=== PATIENT | female | born 1960 ===

== ENCOUNTER 2017-06-20 15:30 | Inpatient (IN) ==
[2017-06-20] MEDS ORDERED: PNEUMOCOCCAL VACCINE (23 VALENT) 0.5 ML VIAL IM ONE (16:57)
[2017-06-20] MEDS ORDERED: DOCUSATE SODIUM 100 MG CAPSULE PO PRN (17:13)
[2017-06-20] MEDS ORDERED: ONDANSETRON 4 MG/2 ML VIAL IV PRN (17:13)
[2017-06-20] MEDS ORDERED: ACETAMINOPHEN 325 MG TABLET PO PRN (17:13)
[2017-06-20] MEDS ORDERED: GLUCAGON 1 MG VIAL IM PRN (17:43)
[2017-06-20] MEDS ORDERED: DEXTROSE 50% 25 GM/50 ML SYRINGE IV PRN (17:43)
--- NOTE | 2017-06-20 18:03 | EKG Report ---
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
--- NOTE | 2017-06-20 18:07 | Hospitalist History & Physical ---
Assessment and Plan (1) Bradycardia Status: Acute Assessment and plan: Admit to telemetry. Cardiac monitoring. Avoid heart rate lowering agents. Consult cardiology. Current Visit: Yes (2) Pneumonia Status: Acute Assessment and plan: O2 monitoring. Start on IV antibiotics. Obtain blood cultures before start. CXR from outside facility pending Current Visit: Yes (3) Hypotension Status: Acute Assessment and plan: Pt reports history of low bp. Stable now. Monitor. Current Visit: Yes (4) Diabetes Status: Acute Assessment and plan: Accuchecks achs. SSI. Hbg A1c in am. Current Visit: Yes (5) CHF (congestive heart failure) Status: Acute Assessment and plan: Stat BNP. Consult cardiology. Current Visit: Yes History of Present Illness Chief complaint: bradycardia History of present illness: Ms. Juarez is a 56 year old female with a history of hypotension, CHF, diabetes , Harrison's palsy, and hyperlipidemia that was transferred to our facility as a direct admit from [facility] for further evaluation of bradycardia and pneumonia. Patient was seen and examined and telemetry [place] room 291. Patient states that yesterday and home she fell several times. She denies hitting her head but reports hurting her right foot. She reported to her PCP for eval today and was sent to the [facility] as a result. At [facility], she was examined and her foot wasn't broken. Pt was noted however to have a low O2 sats in the 80 %. Pt. was also noted to be bradycardiac and a pneumonia was revealed on CXR. She was transferred to our facility for a higher level of care. Pt. denies shortness of breath presently. She also denies chest pain or abdominal pain, vomiting and fever but confirms chills, night sweats, and a cough. Pt. also reports snoring at night abd waking up fatigued. Pt. reports seeing multiple doctors for various health issues but she is unclear on what the issues are. Pt. will be further examined and evaluated. Cardiology will be consulted to assist in the care of the patient as well. Home Medications Medication Instructions Recorded Confirmed Type No Known Home Medications [No 06/20/17 06/20/17 History Known Home Medications] Allergies Allergy/AdvReac Type Severity Reaction Status Date / Time No Known Allergies Allergy Verified 06/20/17 16:57 Medical,Surgical,& Family Hx - Medical History Cardio: History of: CHF Endocrine: History of: Diabetes Mellitus (NIDDM) Respiratory: History of: Pneumonia - Surgical History Abdominal Surgeries: Surgical HX of: Cholecystectomy - Family History Family History: Reports;: Family Stroke - Social History Smoking Status: Never smoker Frequency of Alcohol Use: None Type of Drug Use: None Marital Status: Single Lives With:: Alone Functional capacity: independent ambulation - Constitutional Constitutional: Present: chills, night sweats. Absent: fever(s) - EENT Eyes: Absent: blurry vision Ears: Absent: decreased hearing Nose, mouth and throat: Absent: headache(s) - Cardiovascular Cardiovascular: Present: dyspnea on exertion, edema. Absent: chest pain with activity - Respiratory Respiratory: Present: cough, snoring - Gastrointestinal Gastrointestinal: Present: nausea. Absent: abdominal pain, vomiting - Genitourinary Genitourinary: Absent: dysuria - Neurological Neurological: Present: frequent falls, memory loss - Psychiatric Psychiatric: Absent: anxiety, depression - Hematologic/Lymphatic Hematologic/Lymphatic: Present: easy bruising Exam - Constitutional Vitals: Period Temp Pulse Resp BP Sys/Rosario Pulse Ox Last 24 Hr 98.1 F 50 16 112/57 94 General appearance: no acute distress, over weight - Head Head exam: Present: normal inspection, normocephalic - Eye Eye exam: Present: EOMI. Absent: scleral icterus Pupils: Present: BRIGITTE - ENT ENT exam: Present: normal exam - Neck Neck exam: Present: normal inspection - Respiratory Respiratory exam: Present: clear to auscultation bilaterally. Absent: wheezes - Cardiovascular Cardiovascular exam: Present: bradycardia - GI/Abdominal GI/Abdominal exam: Present: normal bowel sounds, soft. Absent: tenderness - Extremities Exam Extremities exam: Present: normal capillary refill, full ROM, edema, other (pt' s right foot swollen greater than left) - Back Exam Back exam: Present: normal inspection - Neurological Exam Neurological exam: Present: alert, oriented X3 - Psychiatric Psychiatric exam: Present: normal affect, normal mood - Skin Skin exam: Present: normal color, warm, dry, other (right foot bruised) Results - Labs Labs: Labs reviewed from the outside facility Troponin I < 0.05 CPK 697 CK MB 4.8 PBNP 30.7 WBC 4.6 RBC 3.3 HGB 10.8 HCT 33.8 PLT 86 Pt 12 INR 1.16 BUN 8 Creatinine 1.1 Sodium 144 Potassium 4.2 CO2 36.7 SGOT 49 SGPT 38
[2017-06-20] MEDS ORDERED: ALBUTEROL/IPRATROPIUM 3 ML NEB RESP TX PRN (19:04)
[2017-06-20] MEDS: INSULIN LISPRO 100 UNIT/ML SUBCUT SCH (20:06)
[2017-06-21 05:03] LABS: Basophils % 0.3 % (0.0-0.8); Eosinophils # 0.1 10*3/uL (0.0-0.87); Eosinophils % 2.1 % (0.00-10.9); Hematocrit 32.3 VOL% (35.7-47.0); Immature Granulocytes % 3.7 %; Immature Granulocytes Absolute 0.14 #; Lymphocytes # 1.2 10*3/uL (1.4-4.0); Lymphocytes % 32.4 % (21.3-54.2); Mean Corpuscular Hemoglobin 32 PG (27-34); Mean Corpuscular Volume 104.2 FL (87-102); Mean Platelet Volume 11.8 FL (9.6-12.0); Monocytes # 0.2 10*3/uL (0.11-0.8); Monocytes % 5.6 % (1.7-12.7); Neutrophils # 2.1 10*3/uL (1.4-7.4); Neutrophils % 55.9 % (38.7-73.9); Red Cell Distribution Width 16.1 % (9.3-17.3); White Blood Count 3.8 T/CUMM (4-12)
[2017-06-21 05:09] LABS: Platelet Count 70 T/CUMM (130-400)
[2017-06-21 05:50] LABS: Blood Urea Nitrogen 9 MG/DL (7-18); Calcium 8.1 MG/DL (8.5-10.1); Cholesterol 173 MG/DL (50-200); Free T4 (Free Thyroxine) < 0.20 NG/DL (0.76-1.46); Glucose 100 MG/DL (74-106); HDL Cholesterol 52 MG/DL (40-60); Potassium 3.7 MMOL/L (3.5-5.1); Risk Ratio 3.33; Sodium 143 MMOL/L (136-145); Triglycerides 130 MG/DL (2-150)
[2017-06-21 05:52] LABS: Band Neutrophils 4 % (0-10); Eosinophils 3 % (0-10); Lymphocytes 30 % (20-55); Platelet Estimate Decreased; Segmented Neutrophils 57 % (50-85); Total Cells Counted 100
[2017-06-21 05:53] LABS: Giant Platelets Few; Hypochromasia 1+; Ovalocytes Slight
--- NOTE | 2017-06-21 08:45 | XRay Report ---
XR chest 2V Indication: Shortness of breath. Chest 2 views: Comparison yesterday. Moderate to severe cardiomegaly, normal mediastinal contour, bilateral perihilar and left greater than right bibasilar atelectasis and/or infiltrates with bilateral infrahilar air bronchograms again noted. Pulmonary apices remain relatively clear. Obesity again noted as well. Impression: Little significant change from yesterday. Continued bilateral perihilar and bibasilar atelectasis and/or pneumonia. Persistent cardiomegaly. PROCEDURE INTERPRETED AT [facility] DEPARTMENT OF RADIOLOGY Final Report Signed by: Garfield Evans M.D.
[2017-06-21] MEDS: PANTOPRAZOLE 40 MG TABLET PO SCH (09:32)
[2017-06-21] MEDS: INSULIN LISPRO 100 UNIT/ML SUBCUT SCH ×4 (09:35→21:15)
--- NOTE | 2017-06-21 10:07 | Cardiology Consult Note ---
Assessment and Plan - Time spent with patient Time spent with patient: Greater than 30 minutes (1) Bradycardia Status: Acute Assessment and plan: SEE PLAN OF CARE LISTED BELOW. Current Visit: Yes (2) Hypothyroidism Status: Acute Assessment and plan: SEE PLAN OF CARE LISTED BELOW. Current Visit: Yes (3) Cardiomegaly Status: Acute Assessment and plan: SEE PLAN OF CARE LISTED BELOW. Current Visit: Yes (4) Hyperlipidemia Status: Chronic Assessment and plan: SEE PLAN OF CARE LISTED BELOW. Current Visit: Yes (5) Obesity Status: Chronic Assessment and plan: SEE PLAN OF CARE LISTED BELOW. Current Visit: Yes Qualifiers: Body mass index: BMI 45.0-49.9 (6) Orthopnea Status: Chronic Assessment and plan: SEE PLAN OF CARE LISTED BELOW. Current Visit: Yes (7) Bilateral lower extremity edema Status: Acute Assessment and plan: SEE PLAN OF CARE LISTED BELOW. Current Visit: Yes (8) Pancytopenia Status: Acute Assessment and plan: SEE PLAN OF CARE LISTED BELOW. Current Visit: Yes (9) Abnormal EKG Status: Acute Assessment and plan: SEE PLAN OF CARE LISTED BELOW. Current Visit: Yes (10) Snoring Status: Chronic Assessment and plan: SEE PLAN OF CARE LISTED BELOW. Current Visit: Yes (11) Daytime sleepiness Status: Chronic Assessment and plan: SEE PLAN OF CARE LISTED BELOW. Current Visit: Yes (12) CHF (congestive heart failure) Status: Chronic Assessment and plan: SEE PLAN OF CARE LISTED BELOW. Current Visit: Yes Qualifiers: Congestive heart failure type: unspecified congestive heart failure type Congestive heart failure chronicity: chronic Qualified Code(s): I50.9 - Heart failure, unspecified (13) Diabetes Status: Chronic Assessment and plan: SEE PLAN OF CARE LISTED BELOW. Current Visit: Yes (14) Pneumonia Status: Acute Assessment and plan: SEE PLAN OF CARE LISTED BELOW. Current Visit: Yes History of Present Illness - Data of Consult Patient: new to practice Consult date: 06/21/17 Requesting Physician: Garfield Wood - Consult Narrative Reason for consult: bradycardia, history of chf History of present illness: Braiding Operator: New to cardiology, Dr. Herndon Ms. Juarez is a 56 year old female patient without known history of coronary artery disease, not routinely followed by cardiology. Patient has cardiac risk factors significant for diabetes, hyperlipidemia, obesity, family history of heart disease (brother and mother), former smoker and sedentary lifestyle. Patient has past medical history of hypertension, congestive heart failure and Harrison's palsy. Patient reports that she does not take any medications at home. She tells me that her doctor took her off of all of her medication several years ago. She is a poor historian and does not know much about her health conditions. She reports that she has never been seen by patrol man. When asked to manages her heart failure she reports that she gave up on doctors a long time ago. Therefore, she has not followed up routinely with her PCP. Never undergone cardiac workup. Denies previous LHC/stress testing. Patient reports that she recently hurt her right foot status post fall. Subsequently, she was seen at [facility] for evaluation. Right foot was examined in her foot is not broken. She did not hit her head. During her appointment, she was mildly bradycardic with oxygen saturations in the 80s. Chest x-ray was obtained and pneumonia was diagnosed. Subsequently, she was transferred to our facility as a direct admit. Chest x-ray was obtained at our facility which reveals mild cardiomegaly with pneumonia. She has been mildly bradycardic with heart rates in the 50s. Blood pressure stable. She does confirm shortness of breath and dyspnea on exertion over the past 4 days. She denies fever and cough. She does confirm chills and night sweats. She denies experiencing chest pain, heaviness and tightness. Denies abdominal pain, nausea , vomiting, diaphoresis and palpitations. She does confirm chronic orthopnea. She is unable to lie flat at night due to severe shortness of breath. Confirms bilateral lower extremity edema and tenderness. Patient has been admitted under hospital medicine's service. She is being housed in the telemetry unit. Cardiology has been consulted for mild bradycardia and history of congestive heart failure. Of note, patient also has symptoms concerning for obstructive sleep apnea. She confirms snoring and daytime sleepiness. She is also obese with BMI 47. Will most likely benefit from sleep evaluation. Patient was seen and examined on the telemetry unit. She is in no acute distress, requiring oxygen at 2 L via nasal cannula. Most recent oxygen saturation noted to be 96%. Heart rate currently in the 50s. I suspect that this is related to her severe hypothyroidism. This is a new diagnosis. TSH 86 with free T4 less than 0.2. Recommend initiation of Synthroid. EKG revealed sinus bradycardia with prolonged MD interval. Heart rate 47. T-wave abnormality. Will cycle cardiac biomarkers to rule out cardiac ischemia. Echocardiogram. Continue to monitor EKGs. Pneumonia is being treated with Levaquin. No leukocytosis. Afebrile. Patient assented to be pancytopenic. Will order anemia profile. Will defer further management/workup of this to attending. Chest x-ray did reveal cardiomegaly with pneumonia. BNP 6. I will order echocardiogram as she has no baseline echocardiogram available in EMR. Lipid panel reviewed. LDL greater than 100 with triglycerides 130. Will initiate statin. She does have bilateral lower extremity edema and is severely tender. I will order Doppler of bilateral lower extremities. I will further discuss with Dr. herndon and await his additional recommendations. ASSESSMENT/PLAN 1. BRADYCARDIA - Suspect that this is related to patient's severe hypothyroidism. Recommend initiation of Synthroid. Will defer management of this to attending. 2. PNEUMONIA - Continue Levaquin. Management per attending. 3. HYPOTHYROIDISM, NEW DIAGNOSIS - Severe hyperthyroidism noted per thyroid studies. Recommend initiation of Synthroid. Suspect this is causing her bradycardia. 4. CARDIOMEGALLY - Cardiomegaly noted per chest x-ray. Will order echocardiogram. 5. HISTORY OF CHF - Per patient report, she has history of congestive heart failure. She appears to be compensated at this time. BNP 6. Baseline echocardiogram available in EMR. I will order echocardiogram this hospitalization. Further recommendations to follow after echo has been reviewed. 6. HISTORY OF DIABETES - Hemoglobin A1c 6.5. Per patient report, she was taken off of her diabetic medication several years ago. Continue sliding scale insulin, Accu-Cheks before meals and at bedtime. Management per attending. 7. HYPERLIPIDEMIA - Lipid panel reviewed. LDL greater than 100. Triglycerides 130. Will initiate statin. 8. OBESITY - Weight loss encouraged. Treatment of her hypothyroidism should assist in weight loss. 9. ORTHOPNEA - Patient confirms chronic orthopnea. Order echocardiogram as there is not a baseline echo noted in EMR. 10. BILATERAL LOWER EXTREMITY EDEMA/TENDERNESS - Venous Dopplers ordered. Echocardiogram. 11. PANCYTOPENIA - Order anemia profile. Will defer further workup of this to attending. 12. SNORING/DAYTIME SLEEPINESS - Patient also has symptoms concerning for obstructive sleep apnea. She confirms snoring and daytime sleepiness. She is also obese with BMI 47. Will most likely benefit from sleep evaluation. 13. ABNORMAL EKG - EKG reveals sinus bradycardia with prolonged MD interval, heart rate 47. Moderate T-wave abnormality. At this point, I will cycle cardiac biomarkers and EKGs in order to rule out cardiac ischemia. Will order echocardiogram. Patient may benefit from further cardiac workup once her pneumonia improves. I will discuss with Dr. herndon await his additional recommendations. CC: Ruthann Menon MD - Home Medications and Allergies Home Medications: Home Medications Medication Instructions Recorded Confirmed Type No Known Home Medications [No 06/20/17 06/20/17 History Known Home Medications] Allergies/Adverse Reactions: Allergies Allergy/AdvReac Type Severity Reaction Status Date / Time No Known Allergies Allergy Verified 06/20/17 16:57 - Constitutional Constitutional: Present: as per HPI, chills, daytime sleepiness, fatigue, night sweats, weakness, weight gain. Absent: fever(s) - Cardiovascular Cardiovascular: Present: as per HPI, dyspnea, dyspnea on exertion, edema, orthopnea. Absent: diaphoresis, radiating jaw, neck or arm pain, lightheadedness, palpitations, PND - Respiratory Respiratory: Present: as per HPI, dyspnea, dyspnea on exertion, snoring. Absent : cough - Gastrointestinal Gastrointestinal: Present: as per HPI. Absent: abdominal pain, coffee ground emesis, heartburn, hematemesis, hematochezia, loose stools, melena, nausea, vomiting - Neurological Neurological: Present: as per HPI. Absent: abnormal speech, behavioral changes , dizziness, focal weakness, syncope Medical,Surgical,& Family Hx - Medical History Cardio: History of: CHF Endocrine: History of: Diabetes Mellitus (NIDDM), Dyslipidemia Respiratory: History of: Pneumonia - Surgical History Abdominal Surgeries: Surgical HX of: Cholecystectomy - Family History Family History: Reports;: Family Heart Disease, Family Stroke - Social History Smoking Status: Former smoker Frequency of Alcohol Use: None Type of Drug Use: None Marital Status: Single Lives With:: Alone Functional capacity: independent ambulation Physical Examination Vital Signs Temp Pulse Resp BP Pulse Ox 98.1 F 50 L 16 112/57 94 L 06/20/17 16:19 06/20/17 16:19 06/20/17 16:19 06/20/17 16:19 06/20/17 16:19 Exam: General: Appears well with no apparent distress. Pleasant and cooperative. Appears comfortable. HEENT: PERRL, normocephalic, atraumatic. Mucous membranes moist. No jaundice noted. Conjunctiva moist and clear, sclerae anicteric Neck: No JVD/HJR. No carotid bruit appreciated Cardiac: Regular rate and rhythm. No murmur rub or gallop. Lungs: Clear to auscultation. Oxygen via nasal cannula Abdomen: Soft, bowel sounds normoactive. Nontender and nondistended. No abdominal bruit or thrill noted. No masses noted. Extremities: No clubbing, cyanosis noted. 1+ bilateral lower extremity edema, tender to palpation. Upper extremity pulses 2+. Lower extremity pulses 2+. Capillary refill less than 3 seconds. Skin: No unusual lesions or rashes. No skin breakdown appreciated. Neuro: Awake, alert and oriented 3. Moves all extremities well without hemiparesis or paralysis. No essential tremor is appreciated. Result/EKG - Labs CBC & BMP: 06/21/17 03:51 06/21/17 03:51 Lab Results: I have reviewed the past 24 hour labs Labs: Laboratory Results - last 24 hr 06/20/17 06/20/17 06/21/17 18:02 19:55 03:51 WBC 3.8 L RBC 3.10 L Hgb 10.0 L Hct 32.3 L MCV 104.2 H MCH 32 MCHC 31.0 L RDW 16.1 Plt Count 70 L MPV 11.8 Neut % (Auto) 55.9 Lymph % (Auto) 32.4 [facility] % (Auto) 5.6 Eos % (Auto) 2.1 Baso % (Auto) 0.3 Neut # (Auto) 2.1 Lymph # (Auto) 1.[address] [facility] # (Auto) 0.2 Eos # (Auto) 0.1 Baso # (Auto) 0.0 Total Counted 100 Immature Gran % 3.7 Nucleated RBC % 0.0 Immature Gran # 0.14 Segmented Neutrophils 57 Band Neutrophils 4 Lymphocytes 30 Monocytes 6 Eosinophils 3 Nucleated RBCs # 0.00 Platelet Estimate Decreased Giant Platelets Few Immature Plt Fraction 0.0 Hypochromasia 1+ Ovalocytes Slight Morphology Comment Sodium Potassium Chloride Carbon Dioxide Anion Gap BUN Creatinine GFR Calculation BUN/Creatinine Ratio Glucose POC Glucose 98 Hemoglobin A1c Calculated Osmolality Calcium B-Natriuretic Peptide 6 Triglycerides Cholesterol LDL Cholesterol VLDL Cholesterol HDL Cholesterol Heart Disease Risk Ratio Free T4 TSH 3rd Generation 06/21/17 06/21/17 06/21/17 03:51 03:51 07:03 WBC RBC Hgb Hct MCV MCH MCHC RDW Plt Count MPV Neut % (Auto) Lymph % (Auto) [facility] % (Auto) Eos % (Auto) Baso % (Auto) Neut # (Auto) Lymph # (Auto) [facility] # (Auto) Eos # (Auto) Baso # (Auto) Total Counted Immature Gran % Nucleated RBC % Immature Gran # Segmented Neutrophils Band Neutrophils Lymphocytes Monocytes Eosinophils Nucleated RBCs # Platelet Estimate Giant Platelets Immature Plt Fraction Hypochromasia Ovalocytes Morphology Comment Sodium 143 Potassium 3.7 Chloride 104 Carbon Dioxide 37 H Anion Gap 5.7 BUN 9 Creatinine 0.80 GFR Calculation 103 BUN/Creatinine Ratio 11.00 Glucose 100 POC Glucose 98 Hemoglobin A1c 6.5 H Calculated Osmolality 283.0 Calcium 8.1 L B-Natriuretic Peptide Triglycerides 130 Cholesterol 173 LDL Cholesterol 113.0 VLDL Cholesterol 26.0 HDL Cholesterol 52 Heart Disease Risk Ratio 3.33 Free T4 < 0.20 L TSH 3rd Generation 86.000 H 06/21/17 07:30 WBC RBC Hgb Hct MCV MCH MCHC RDW Plt Count MPV Neut % (Auto) Lymph % (Auto) [facility] % (Auto) Eos % (Auto) Baso % (Auto) Neut # (Auto) Lymph # (Auto) [facility] # (Auto) Eos # (Auto) Baso # (Auto) Total Counted Immature Gran % Nucleated RBC % Immature Gran # Segmented Neutrophils Band Neutrophils Lymphocytes Monocytes Eosinophils Nucleated RBCs # Platelet Estimate Giant Platelets Immature Plt Fraction Hypochromasia Ovalocytes Morphology Comment Sodium Potassium Chloride Carbon Dioxide Anion Gap BUN Creatinine GFR Calculation BUN/Creatinine Ratio Glucose POC Glucose 105 Hemoglobin A1c Calculated Osmolality Calcium B-Natriuretic Peptide Triglycerides Cholesterol LDL Cholesterol VLDL Cholesterol HDL Cholesterol Heart Disease Risk Ratio Free T4 TSH 3rd Generation
--- NOTE | 2017-06-21 10:52 | EKG Report ---
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
[2017-06-21 11:10] LABS: Basophils % 0.2 % (0.0-0.8); Eosinophils # 0.1 10*3/uL (0.0-0.87); Hematocrit 32.9 VOL% (35.7-47.0); Hemoglobin 10.1 GM/DL (12.0-16.0); Immature Granulocytes % 4.5 %; Immature Granulocytes Absolute 0.18 #; Lymphocytes % 24.6 % (21.3-54.2); Mean Corpuscular HGB Conc 30.7 GM/DL (32-36); Mean Corpuscular Hemoglobin 33 PG (27-34); Mean Corpuscular Volume 107.9 FL (87-102); Mean Platelet Volume 10.8 FL (9.6-12.0); Monocytes # 0.2 10*3/uL (0.11-0.8); Monocytes % 5.7 % (1.7-12.7); Neutrophils # 2.5 10*3/uL (1.4-7.4); Platelet Count 71 T/CUMM (130-400); Red Blood Count 3.05 MC/CUMM (3.8-5.5); Red Cell Distribution Width 16.3 % (9.3-17.3)
--- NOTE | 2017-06-21 11:36 | Ultrasound Report ---
US venous doppler LE BI Indication: Bilateral lower extremity edema/tenderness. Comparison: No relevant comparison.. Technique: Grayscale, spectral, and color Doppler interrogation of the bilateral lower extremity veins was performed. Augmentation and compression was performed. Findings: Grayscale, color Doppler, and pulsed Doppler evaluation of the veins of the bilateral lower extremity demonstrates no evidence of deep venous thrombosis. IMPRESSION: No evidence of deep venous thrombosis in either lower extremity. PROCEDURE INTERPRETED AT [facility] DEPARTMENT OF RADIOLOGY Final Report Signed by: Dr Eloy Jain
[2017-06-21 11:39] LABS: Folate 10.8 NG/ML (5.4-24.0); Vitamin B12 345 PG/ML (211-911)
[2017-06-21 11:43] LABS: CKMB % 1.2 %; Troponin I Only < 0.015 NG/ML (0.00-0.045)
[2017-06-21 12:15] LABS: Sedimentation Rate-Westergren 48 MM/HR (0-30)
[2017-06-21] MEDS ORDERED: LEVOTHYROXINE 25 MCG TABLET PO ONE (14:16)
--- NOTE | 2017-06-21 16:20 | Hospitalist Progress Note ---
Assessment and Plan (1) Bradycardia Status: Acute Assessment and plan: Likely secondary to hypothyroidism. Start Synthroid supplementation. Cardiology consult. Current Visit: Yes (2) Pneumonia Status: Acute Assessment and plan: Continue Levaquin. Current Visit: Yes (3) CHF (congestive heart failure) Status: Chronic Assessment and plan: Follow-up echo. Treat hypothyroidism. Current Visit: Yes Qualifiers: Congestive heart failure type: unspecified congestive heart failure type Congestive heart failure chronicity: chronic Qualified Code(s): I50.9 - Heart failure, unspecified (4) Hypothyroidism Status: Acute Assessment and plan: Start Synthroid Current Visit: Yes Qualifiers: Hypothyroidism type: acquired Qualified Code(s): E03.9 - Hypothyroidism, unspecified (5) Obesity Status: Chronic Current Visit: Yes Qualifiers: Obesity type: due to excess calories Serious obesity comorbidity presence: with serious comorbidity Body mass index: BMI 45.0-49.9 (6) Bilateral lower extremity edema Status: Acute Current Visit: Yes (7) Snoring Status: Chronic Current Visit: Yes (8) Daytime sleepiness Status: Chronic Assessment and plan: Consult Dr. Lee Current Visit: Yes Hospitalist: Subjective Interval history: Patient seen and examined. No acute events overnight. Case discussed with nursing staff. Labs reviewed. Cardiology consult reviewed. Agree with treatment of hypothyroidism and sleep medicine consult for obstructive sleep apnea. The symptoms of hypothyroidism are evident and I agree with starting treatment with Synthroid. Exam - Constitutional Vitals: Period Temp Pulse Resp BP Sys/Rosario Pulse Ox Last 24 Hr 96.8 F-98.2 F 46-96 16-20 100-118/54-59 91-97 Exam: Constitutional System: No distress. No tremulousness. Morbidly obese Head: Normocephalic, atraumatic. Ears, Nose and Throat System: No pain or tenderness. No epistaxis or discharge Eyes System: Pupils equal, round, and reactive. Extraocular muscles intact. Neck: Supple, without adenopathy, No jugular venous distention. Respiratory System: Chest clear to auscultation. Cardiovascular System: Heart with regular rate and rhythm. No murmur. GI System: Abdomen soft, nontender. Normo active bowel sounds present. Musculoskeletal System: limbs with bilateral pitting pedal edema. Full distal pulses. Neurological System: No discernable sensory deficit. No aphasia Psychiatric System: Conversation is rational Results - Labs CBC & BMP: 06/21/17 10:51 06/21/17 03:51 Lab Results: I have reviewed the past 24 hour labs - Diagnostic Findings Procedure: Chest x-ray: report reviewed by me, image reviewed by me
[2017-06-21] MEDS: LEVOFLOXACIN INJ 500 MG in PREMIX 1 EACH IV SCH (17:52)
--- NOTE | 2017-06-21 17:55 | Sleep Medicine Consult ---
Assessment and Plan (1) Unspecified sleep apnea Status: Acute Assessment and plan: This patient most certainly has very severe sleep apnea based on her physical findings, symptoms, and profound sleepiness. She also has evidence of hypothyroidism that could be a contributing factor and I would recommend institution of thyroid replacement therapy with close follow-up of her TSH levels. We will get an HST done on her tonight while on supplemental oxygen and follow-up those results in a.m. Current Visit: Yes (2) Hypothyroidism Status: Acute Assessment and plan: Obviously, this is a contributing factor and hopefully will improve her status some. This patient may be in danger of myxedema coma if she declines or has other deteriorating factors. Current Visit: Yes Qualifiers: Hypothyroidism type: acquired Qualified Code(s): E03.9 - Hypothyroidism, unspecified (3) Diabetes Status: Chronic Assessment and plan: The prevalence rate for obstructive sleep apnea in patients with type 2 diabetes can be as high as 86%. Those patients with moderate to severe obstructive sleep apnea are at a greater risk for diabetic nephropathy and neuropathy. Compliance with CPAP therapy for these patients can lead to improvement in glycemic control and improvement in insulin sensitivity. Current Visit: Yes History of Present Illness Chief complaint: Sleep apnea History of present illness: Ms. Juraez is a 56 year old female admitted with CHF and bradycardia. There was concern for sleep apnea as a contributing factor and sleep medicine was consulted. She has a stop bang score of 7 and an [place] sleepiness score of 24. She does have a long history of loud snoring with abnormal breathing during sleep with witnessed apneas. She is profoundly sleepy all the time. She usually retires around 9 PM but could not give an estimate of usual wakeup time because she sleeps much of the day. She states that she had been set up in the past for sleep evaluation but lost her appointment after her mother . She does awaken frequently to urinate. Home Medications Medication Instructions Recorded Confirmed Type No Known Home Medications [No 06/20/17 06/20/17 History Known Home Medications] Allergies Allergy/AdvReac Type Severity Reaction Status Date / Time No Known Allergies Allergy Verified 06/20/17 16:57 Review of systems: Notable for profound sleepiness and chronic problems with pain in her legs that make it hard for her to ambulate. Exam (Pulmonay) H&P - Constitutional Vitals: Period Temp Pulse Resp BP Sys/Rosario Pulse Ox Last 24 Hr 96.8 F-98.2 F 46-96 18-20 100-118/54-59 90-97 Exam: She is sitting upright on the side of the bed wearing nasal cannula O2. She appears profoundly sleepy but does answer questions appropriately. She will fall asleep during the interview. Pupils equal round reactive to light and accommodation. Extraocular movements intact. Oropharynx with a class IV Mallampati exam. Neck is large at 23.5 inches circumference. No supraclavicular adenopathy is noted. Chest with fair air movement without significant wheeze or rhonchi. Cardiac exam reveals a regular rhythm without murmur or gallop. Abdomen obese nontender without palpable hepatosplenomegaly or mass. Extremities are without significant edema or clubbing. Neurologically , she is somnolent but answers all questions appropriately. Medical,Surgical,& Family Hx - Medical History Cardio: History of: CHF Endocrine: History of: Diabetes Mellitus (NIDDM), Dyslipidemia Respiratory: History of: Pneumonia - Surgical History Abdominal Surgeries: Surgical HX of: Cholecystectomy - Family History Family History: Reports;: Family Heart Disease, Family Stroke - Social History Smoking Status: Former smoker Frequency of Alcohol Use: None Type of Drug Use: None Results - Labs CBC & BMP: 06/21/17 10:51 06/21/17 03:51 Lab Results: I have reviewed the past 24 hour labs Labs: This patient has severe hypothyroidism with an elevated TSH of 86.
--- NOTE | 2017-06-21 18:25 | EKG Report ---
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
[2017-06-21 19:20] LABS: CKMB % 1.4 %; Troponin I Only < 0.015 NG/ML (0.00-0.045)
[2017-06-21] MEDS: ATORVASTATIN 20 MG TABLET PO SCH (21:15)
--- NOTE | 2017-06-21 21:35 | ECHO Report ---
Paige Juarez Exam Date: 06/21/2017 10:00 Referring Physician: Technologist: Ludmila Acosta Age: 56 Ht (in): 62 Wt (lb): 259 Gender: F Exam Location: [facility] Echo Indications: cardiomegaly, pancytopnea, bradycardia, pneumonia, Hx. CHF BP: 101 / 54 HR: 46 Rhythm: bradycardia Technical Quality: Good IMPRESSIONS Mild concentric left ventricular hypertrophy with diastolic dysfunction. Left ventricular ejection fraction is estimated at >55 %. Mild apical LAE. Mildly thickened mitral valve with mild mitral regurgitation. Small pericardial effusion. + Moderate size left pleural effusion. MEASUREMENTS (Male / Female) Normal Values 2D ECHO LV Diastolic Diameter PLAX 5.3 cm 4.2 - 5.9 / 3.9 - 5.3 cm LV Systolic Diameter PLAX 3.5 cm LV Fractional Shortening PLAX 34.5 % IVS Diastolic Thickness 1.3 cm 0.6 - 1.0 / 0.6 - 0.9 cm LVPW Diastolic Thickness 1.1 cm 0.6 - 1.0 / 0.6 - 0.9 cm RV Internal Dim ED PLAX 2.8 cm Aortic Root Diameter 2.5 cm LA Systolic Diameter LX 4.2 cm 3.0 - 4.0 / 2.7 - 3.8 cm FINDINGS Left Ventricle Normal left ventricular cavity size. Mild concentric left ventricular hypertrophy with diastolic dysfunction. Left ventricular ejection fraction is estimated at >55 %. Right Ventricle Normal right ventricular size. Right Atrium Normal right atrial size. Left Atrium Mild apical LAE Mitral Valve Mildly thickened mitral valve with mild mitral regurgitation. Aortic Valve The aortic valve is trileaflet, delicate and has normal motion. Tricuspid Valve Morphologically normal tricuspid valve. Pulmonic Valve Morphologically normal pulmonic valve. Trace pulmonary valve regurgitation. Pericardium Small pericardial effusion. + Moderate size left pleural effusion Aorta Normal size aortic root and proximal ascending aorta. Brandyn Nova MD (Electronically Signed) Final Date: 21 June 2017 21:34
[2017-06-22 03:02] LABS: Basophils % 0.4 % (0.0-0.8); Eosinophils % 0.8 % (0.00-10.9); Hematocrit 34.9 VOL% (35.7-47.0); Hemoglobin 10.6 GM/DL (12.0-16.0); Immature Granulocytes % 5.9 %; Immature Granulocytes Absolute 0.28 #; Lymphocytes # 0.8 10*3/uL (1.4-4.0); Lymphocytes % 16.1 % (21.3-54.2); Mean Corpuscular HGB Conc 30.4 GM/DL (32-36); Mean Corpuscular Hemoglobin 33 PG (27-34); Mean Platelet Volume 11.4 FL (9.6-12.0); Monocytes # 0.2 10*3/uL (0.11-0.8); Monocytes % 4.6 % (1.7-12.7); Neutrophils # 3.5 10*3/uL (1.4-7.4); Neutrophils % 72.2 % (38.7-73.9); Platelet Count 73 T/CUMM (130-400); Red Blood Count 3.23 MC/CUMM (3.8-5.5); White Blood Count 4.8 T/CUMM (4-12)
[2017-06-22 03:18] LABS: Calcium 8.5 MG/DL (8.5-10.1); Magnesium 2.9 MG/DL (1.8-2.4); Osmolality,Calculated 280.3 MOS/KG (273-304)
[2017-06-22 03:20] LABS: CKMB % 1.5 %; Troponin I Only < 0.015 NG/ML (0.00-0.045)
[2017-06-22 04:44] LABS: Band Neutrophils 9 % (0-10); Hypochromasia 2+; Lymphocytes 16 % (20-55); Metamyelocytes 3 %; Myelocytes 2 %; Platelet Estimate Decreased; Segmented Neutrophils 67 % (50-85); Total Cells Counted 100
--- NOTE | 2017-06-22 07:39 | EKG Report ---
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
--- NOTE | 2017-06-22 08:54 | Hospitalist Progress Note ---
Assessment and Plan (1) Bradycardia Status: Acute Assessment and plan: Likely secondary to hypothyroidism. Start Synthroid supplementation. Cardiology consult. 06/22/18: Add IV Synthroid. Transfer to ICU. Current Visit: Yes (2) Pneumonia Status: Acute Assessment and plan: Continue Levaquin. Current Visit: Yes (3) CHF (congestive heart failure) Status: Chronic Assessment and plan: Treat hypothyroidism. Echo shows Mild concentric left ventricular hypertrophy with diastolic dysfunction. Left ventricular ejection fraction is estimated at >55 %. Mild apical LAE. Mildly thickened mitral valve with mild mitral regurgitation. Small pericardial effusion. + Moderate size left pleural effusion. Current Visit: Yes Qualifiers: Congestive heart failure type: diastolic Congestive heart failure chronicity: chronic Qualified Code(s): I50.32 - Chronic diastolic (congestive ) heart failure (4) Hypothyroidism Status: Acute Assessment and plan: Start Synthroid Current Visit: Yes Qualifiers: Hypothyroidism type: acquired Qualified Code(s): E03.9 - Hypothyroidism, unspecified (5) Obesity Status: Chronic Current Visit: Yes Qualifiers: Obesity type: due to excess calories Serious obesity comorbidity presence: with serious comorbidity Body mass index: BMI 45.0-49.9 (6) Bilateral lower extremity edema Status: Acute Current Visit: Yes (7) Snoring Status: Chronic Current Visit: Yes (8) Daytime sleepiness Status: Chronic Assessment and plan: Consult Dr. Lee 06/22/18: Consult reviewed Current Visit: Yes Hospitalist: Subjective Interval history: Ms. Juarez appears more lethargic this morning. More difficult to arouse and not answering questions appropriately. Transferring her to CCU. She is being treated for congestive heart failure, obstructive sleep apnea, severe hypothyroidism. I have added IV Synthroid. Echo shows: Mild concentric left ventricular hypertrophy with diastolic dysfunction. Left ventricular ejection fraction is estimated at >55 %. Mild apical LAE. Mildly thickened mitral valve with mild mitral regurgitation. Small pericardial effusion. + Moderate size left pleural effusion. Exam - Constitutional Vitals: Period Temp Pulse Resp BP Sys/Rosario Pulse Ox Last 24 Hr 96.4 F-97 F 46-56 15-20 96-136/54-74 89-97 Exam: Constitutional System: Moderate distress. No tremulousness. Morbidly obese. Increasingly lethargic Head: Normocephalic, atraumatic. Ears, Nose and Throat System: No pain or tenderness. No epistaxis or discharge Eyes System: Pupils equal, round, and reactive. Extraocular muscles intact. Neck: Supple, without adenopathy, No jugular venous distention. Respiratory System: Chest clear to auscultation. Cardiovascular System: Heart with regular rate and rhythm. No murmur. GI System: Abdomen soft, nontender. Normo active bowel sounds present. Musculoskeletal System: limbs with bilateral pitting pedal edema. Full distal pulses. Neurological System: No discernable sensory deficit. No aphasia. Increasingly lethargic Results - Labs CBC & BMP: 06/22/17 02:27 06/22/17 02:27 Lab Results: I have reviewed the past 24 hour labs
--- NOTE | 2017-06-22 08:55 | Cardiology Progress Note ---
Assessment and Plan (1) Bradycardia Status: Acute Assessment and plan: SEE PLAN OF CARE LISTED BELOW. Current Visit: Yes (2) Hypothyroidism Status: Acute Assessment and plan: SEE PLAN OF CARE LISTED BELOW. Current Visit: Yes Qualifiers: Hypothyroidism type: acquired Qualified Code(s): E03.9 - Hypothyroidism, unspecified (3) Cardiomegaly Status: Acute Assessment and plan: SEE PLAN OF CARE LISTED BELOW. Current Visit: Yes (4) Hyperlipidemia Status: Chronic Assessment and plan: SEE PLAN OF CARE LISTED BELOW. Current Visit: Yes (5) Obesity Status: Chronic Assessment and plan: SEE PLAN OF CARE LISTED BELOW. Current Visit: Yes Qualifiers: Obesity type: due to excess calories Serious obesity comorbidity presence: with serious comorbidity Body mass index: BMI 45.0-49.9 (6) Orthopnea Status: Chronic Assessment and plan: SEE PLAN OF CARE LISTED BELOW. Current Visit: Yes (7) Bilateral lower extremity edema Status: Acute Assessment and plan: SEE PLAN OF CARE LISTED BELOW. Current Visit: Yes (8) Pancytopenia Status: Acute Assessment and plan: SEE PLAN OF CARE LISTED BELOW. Current Visit: Yes (9) Abnormal EKG Status: Acute Assessment and plan: SEE PLAN OF CARE LISTED BELOW. Current Visit: Yes (10) Snoring Status: Chronic Assessment and plan: SEE PLAN OF CARE LISTED BELOW. Current Visit: Yes (11) Daytime sleepiness Status: Chronic Assessment and plan: SEE PLAN OF CARE LISTED BELOW. Current Visit: Yes (12) CHF (congestive heart failure) Status: Chronic Assessment and plan: SEE PLAN OF CARE LISTED BELOW. Current Visit: Yes Qualifiers: Congestive heart failure type: diastolic Congestive heart failure chronicity: chronic Qualified Code(s): I50.32 - Chronic diastolic (congestive ) heart failure (13) Diabetes Status: Chronic Assessment and plan: SEE PLAN OF CARE LISTED BELOW. Current Visit: Yes (14) Pneumonia Status: Acute Assessment and plan: SEE PLAN OF CARE LISTED BELOW. Current Visit: Yes Cardiology - PN: Subj Interval history: Arts Therapist: New to cardiology, Dr. Herndon SUMMARY Ms. Juarez is a 56 year old female patient without known history of coronary artery disease, not routinely followed by cardiology. Patient has cardiac risk factors significant for diabetes, hyperlipidemia, obesity, family history of heart disease (brother and mother), former smoker and sedentary lifestyle. Patient has past medical history of hypertension, congestive heart failure and Harrison's palsy. Patient reports that she does not take any medications at home. She tells me that her doctor took her off of all of her medication several years ago. She is a poor historian and does not know much about her health conditions. She reports that she has never been seen by casting director. When asked to manages her heart failure she reports that she gave up on doctors a long time ago. Therefore, she has not followed up routinely with her PCP. Never undergone cardiac workup. Denies previous LHC/stress testing. Patient was transferred from [facility] for further evaluation of bradycardia and pneumonia. At our facility, she was noted to have severe hypothyroidism. Synthroid treatment was initiated. She is currently being treated for pneumonia with IV antibiotics. Echocardiogram was performed yesterday which revealed normal systolic function, ejection fraction greater than 55%. Diastolic dysfunction was noted. Small pericardial effusion. Moderate sized left pleural effusion. JUNE 22, 2017 UPDATE Patient was seen and examined on the telemetry unit. She is more lethargic today. She is being transferred down to the CCU this morning in order to be watched more closely as she will be receiving IV levothyroxine. She continues to be mildly bradycardic with heart rates in the 50s. Suspect that this is related to her severe hypothyroidism, receiving levothyroxine. Blood pressure is borderline hypotensive at times. We will hold off on adding JELENA inhibitor/ ARB until her blood pressures are more stable. BNP is 6. No overt heart failure noted. Can consider adding p.o. diuretics. She is without compressive chest pain, heaviness and tightness. Cardiac biomarkers negative 3. At this point, we will continue current management. Hopeful that bradycardia will improve with treatment of her hypothyroidism. I will further discuss with Dr. Nova and await his additional recommendations. ASSESSMENT/PLAN 1. BRADYCARDIA - Suspect that this is related to patient's severe hypothyroidism. Hopeful that this will improve with IV levothyroxine. Can consider pacemaker in her future if this is not improved with treatment of her thyroid dysfunction. 2. PNEUMONIA - Continue Levaquin. Management per attending. 3. HYPOTHYROIDISM, NEW DIAGNOSIS - Severe hyperthyroidism noted per thyroid studies. Continue Synthroid. 4. HISTORY OF CHF, DIASTOLIC DYSFUNCTION - Per patient report, she has history of congestive heart failure. She appears to be compensated at this time. BNP 6. Echocardiogram yesterday revealed normal systolic function with ejection fraction greater than 55%. She does have diastolic dysfunction. Unable to initiate beta-blockade at this time due to bradycardia. Will add JELENA inhibitor/ARB when blood pressures are more stable. Can consider adding p.o. diuretics. 5. HISTORY OF DIABETES - Hemoglobin A1c 6.5. Per patient report, she was taken off of her diabetic medication several years ago. Continue sliding scale insulin, Accu-Cheks before meals and at bedtime. Management per attending. 6. HYPERLIPIDEMIA - Lipid panel reviewed. LDL greater than 100. Triglycerides 130. Continue lipid-lowering agent. 7. OBESITY - Weight loss encouraged. Treatment of her hypothyroidism should assist in weight loss. 8. ORTHOPNEA - echocardiogram reveals diastolic dysfunction. No overt heart failure noted. Will initiate beta-blockade/JELENA inhibitor when blood pressure and heart rate will allow. Can consider addition of p.o. diuretics at discharge. 9. BILATERAL LOWER EXTREMITY EDEMA/TENDERNESS - This appears to be chronic. Venous Dopplers did not reveal evidence of DVT. 10. PANCYTOPENIA - Will defer further workup of this to attending. 11. SNORING/DAYTIME SLEEPINESS - Workup underway per Dr. Lee. Exam (Progress Note) - Constitutional Vitals: Period Temp Pulse Resp BP Sys/Rosario Pulse Ox Last 24 Hr 96.4 F-97 F 46-56 15-20 96-136/54-74 89-97 Exam: General: Lethargic. Moderate distress. Obese. HEENT: PERRL, normocephalic, atraumatic. Mucous membranes moist. No jaundice noted. Conjunctiva moist and clear, sclerae anicteric Neck: No JVD/HJR. No carotid bruit appreciated Cardiac: Regular rate and rhythm. No murmur rub or gallop. Lungs: Clear to auscultation. Oxygen via nasal cannula Abdomen: Soft, bowel sounds normoactive. Nontender and nondistended. No abdominal bruit or thrill noted. No masses noted. Extremities: No clubbing, cyanosis noted. 1+ bilateral lower extremity edema, tender to palpation. Upper extremity pulses 2+. Lower extremity pulses 2+. Capillary refill less than 3 seconds. Skin: No unusual lesions or rashes. No skin breakdown appreciated. Neuro: Lethargic. Able to move all extremities to command. Result/EKG - Labs CBC & BMP: 06/22/17 02:27 06/22/17 02:27 Lab Results: I have reviewed the past 24 hour labs Labs: Laboratory Results - last 24 hr 06/21/17 06/21/17 06/21/17 10:51 10:51 10:51 WBC 4.0 RBC 3.05 L Hgb 10.1 L Hct 32.9 L MCV 107.9 H MCH 33 MCHC 30.7 L RDW 16.3 Plt Count 71 L MPV 10.8 Neut % (Auto) 63.0 Lymph % (Auto) 24.6 [place] % (Auto) 5.7 Eos % (Auto) 2.0 Baso % (Auto) 0.2 Neut # (Auto) 2.5 Lymph # (Auto) 1.0 L [place] # (Auto) 0.2 Eos # (Auto) 0.1 Baso # (Auto) 0.0 Total Counted Immature Gran % 4.5 Nucleated RBC % 0.0 Immature Gran # 0.18 Segmented Neutrophils Band Neutrophils Lymphocytes Monocytes Metamyelocytes Myelocytes Nucleated RBCs # 0.00 Platelet Estimate Immature Plt Fraction 6.2 Hypochromasia ESR Westergren 48 H Absolute Retic 0.1 Percent Retic 2.8 H Retic Hgb Equivalent 30.6 Sodium Potassium Chloride Carbon Dioxide Anion Gap BUN Creatinine GFR Calculation BUN/Creatinine Ratio Glucose POC Glucose Calculated Osmolality Calcium Magnesium Ferritin 86.0 Total Creatine Kinase 481 H CK-MB (CK-2) 5.8 H CK and CKMB Interp 1.2 Troponin I < 0.015 Vitamin B12 Folate ALCON (IgG-AHG) ALCON, Polyspecific 06/21/17 06/21/17 06/21/17 10:51 10:52 11:30 WBC RBC Hgb Hct MCV MCH MCHC RDW Plt Count MPV Neut % (Auto) Lymph % (Auto) [place] % (Auto) Eos % (Auto) Baso % (Auto) Neut # (Auto) Lymph # (Auto) [place] # (Auto) Eos # (Auto) Baso # (Auto) Total Counted Immature Gran % Nucleated RBC % Immature Gran # Segmented Neutrophils Band Neutrophils Lymphocytes Monocytes Metamyelocytes Myelocytes Nucleated RBCs # Platelet Estimate Immature Plt Fraction Hypochromasia ESR [place] Absolute Retic Percent Retic Retic Hgb Equivalent Sodium Potassium Chloride Carbon Dioxide Anion Gap BUN Creatinine GFR Calculation BUN/Creatinine Ratio Glucose POC Glucose 98 Calculated Osmolality Calcium Magnesium Ferritin Total Creatine Kinase CK-MB (CK-2) CK and CKMB Interp Troponin I Vitamin B12 345 Folate 10.8 ALCON (IgG-AHG) Negative ALCON, Polyspecific Negative 06/21/17 06/21/17 06/21/17 16:22 18:22 20:21 WBC RBC Hgb Hct MCV MCH MCHC RDW Plt Count MPV Neut % (Auto) Lymph % (Auto) [place] % (Auto) Eos % (Auto) Baso % (Auto) Neut # (Auto) Lymph # (Auto) [place] # (Auto) Eos # (Auto) Baso # (Auto) Total Counted Immature Gran % Nucleated RBC % Immature Gran # Segmented Neutrophils Band Neutrophils Lymphocytes Monocytes Metamyelocytes Myelocytes Nucleated RBCs # Platelet Estimate Immature Plt Fraction Hypochromasia ESR [place] Absolute Retic Percent Retic Retic Hgb Equivalent Sodium Potassium Chloride Carbon Dioxide Anion Gap BUN Creatinine GFR Calculation BUN/Creatinine Ratio Glucose POC Glucose 105 110 H Calculated Osmolality Calcium Magnesium Ferritin Total Creatine Kinase 548 H CK-MB (CK-2) 7.5 H CK and CKMB Interp 1.4 Troponin I < 0.015 Vitamin B12 Folate ALCON (IgG-AHG) ALCON, Polyspecific 06/22/17 06/22/17 06/22/17 02:27 02:27 02:27 WBC 4.8 RBC 3.23 L Hgb 10.6 L Hct 34.9 L MCV 108.0 H MCH 33 MCHC 30.4 L RDW 16.0 Plt Count 73 L MPV 11.4 Neut % (Auto) 72.2 Lymph % (Auto) 16.1 L [place] % (Auto) 4.6 Eos % (Auto) 0.8 Baso % (Auto) 0.4 Neut # (Auto) 3.5 Lymph # (Auto) 0.8 L [place] # (Auto) 0.2 Eos # (Auto) 0.0 Baso # (Auto) 0.0 Total Counted 100 Immature Gran % 5.9 Nucleated RBC % 0.0 Immature Gran # 0.28 Segmented Neutrophils 67 Band Neutrophils 9 Lymphocytes 16 L Monocytes 3 Metamyelocytes 3 Myelocytes 2 Nucleated RBCs # 0.00 Platelet Estimate Decreased Immature Plt Fraction 6.6 Hypochromasia 2+ ESR [place] Absolute Retic Percent Retic Retic Hgb Equivalent Sodium 141 Potassium 4.0 Chloride 103 Carbon Dioxide 38 H Anion Gap 4.0 L BUN 10 Creatinine 1.00 GFR Calculation 79 BUN/Creatinine Ratio 10.00 Glucose 119 H POC Glucose Calculated Osmolality 280.3 Calcium 8.5 Magnesium 2.9 H Ferritin Total Creatine Kinase 507 H CK-MB (CK-2) 7.7 H CK and CKMB Interp 1.5 Troponin I < 0.015 Vitamin B12 Folate ALCON (IgG-AHG) ALCON, Polyspecific 06/22/17 08:07 WBC RBC Hgb Hct MCV MCH MCHC RDW Plt Count MPV Neut % (Auto) Lymph % (Auto) [place] % (Auto) Eos % (Auto) Baso % (Auto) Neut # (Auto) Lymph # (Auto) [place] # (Auto) Eos # (Auto) Baso # (Auto) Total Counted Immature Gran % Nucleated RBC % Immature Gran # Segmented Neutrophils Band Neutrophils Lymphocytes Monocytes Metamyelocytes Myelocytes Nucleated RBCs # Platelet Estimate Immature Plt Fraction Hypochromasia ESR [place] Absolute Retic Percent Retic Retic Hgb Equivalent Sodium Potassium Chloride Carbon Dioxide Anion Gap BUN Creatinine GFR Calculation BUN/Creatinine Ratio Glucose POC Glucose 115 H Calculated Osmolality Calcium Magnesium Ferritin Total Creatine Kinase CK-MB (CK-2) CK and CKMB Interp Troponin I Vitamin B12 Folate ALCON (IgG-AHG) ALCON, Polyspecific
[2017-06-22 09:06] LABS: Hemoglobin A1 (Alkaline) 97.5 % (96.5-98.5); Hemoglobin A2 (Alkaline) 2.5 % (1.5-3.5)
[2017-06-22] MEDS: LEVOTHYROXINE 25 MCG TABLET PO SCH (09:34)
[2017-06-22] MEDS: INSULIN LISPRO 100 UNIT/ML SUBCUT SCH ×4 (09:35→21:11)
[2017-06-22] MEDS: PANTOPRAZOLE 40 MG TABLET PO SCH (09:49)
[2017-06-22 09:51] LABS: ABG Base Excess 4.6 MMOL/L (-2.5-2.5); ABG HCO3 28.5 MMOL/L (20-26); ABG Oxygen Saturation 92.6 % (95-100); ABG PO2 75.6 MM HG (80-95); ABG TCO2 37.3 MMOL/L (23-27)
[2017-06-22 09:54] LABS: ABG PH 7.102 (7.35-7.45)
[2017-06-22 11:45] LABS: ABG Base Excess 5.4 MMOL/L (-2.5-2.5); ABG HCO3 29.2 MMOL/L (20-26); ABG Oxygen Saturation 90.3 % (95-100); ABG PO2 68.1 MM HG (80-95); ABG TCO2 38.4 MMOL/L (23-27)
--- NOTE | 2017-06-22 11:46 | Pulmonology Consult Note ---
Assessment and Plan (1) Acute respiratory failure Status: Acute Assessment and plan: She has a PCO2 of 131 and a pH of 7.09 on BiPAP with 100% oxygen. Do not have the PO2 out yet. Clearly she has not responded to BiPAP. She needs intubation and mechanical ventilation. The respiratory failure is probably due to severe hypothyroidism with early myxedema coma. Also likely has obstructive sleep apnea and or obesity hypoventilation syndrome Current Visit: Yes (2) Hypothyroidism Status: Acute Assessment and plan: TSH 83 with a very low free T4. Clearly she is profoundly hypothyroid. Agree with replacing with Synthroid. It will take several days to get her thyroid condition corrected with medications. Current Visit: Yes Qualifiers: Hypothyroidism type: acquired Qualified Code(s): E03.9 - Hypothyroidism, unspecified (3) Unspecified sleep apnea Status: Acute Assessment and plan: Likely has sleep apnea based on her history and physical exam. This is clearly aggravated by her hypothyroidism. BiPAP does not appear to be working at this point. She needs mechanical ventilation and then can wean when her hypothyroid is better controlled Current Visit: Yes (4) Diabetes Status: Chronic Assessment and plan: Glucoses look okay Current Visit: Yes History of Present Illness Chief complaint: Respiratory failure History of present illness: Ms. Juarez is a 56 year old female who is apparently noncompliant with her medications and came in with decreased level of consciousness and syncopal episodes. She was found to have an elevated PCO2 over 100 and a pH of 7.1 and presently is on facemask BiPAP with 100% oxygen. We do not have blood gases on that yet. She was found to be profoundly hypothyroid with a TSH of 86 and a free T4 less than 0.2. We think she was supposed to be on thyroid medicine at home but stopped taking it. She really was not taking any of her medicines. She has a history of diabetes. She is felt to have congestive heart failure but her echo showed left ventricular hypertrophy normal LV ejection fraction, and her BNP is actually low. She may be actually on the dry side. Her chest x- ray shows a right midlung infiltrate she has got a small left pleural effusion or pleural thickening. Looking back in x-rays from 2013 I do not really see any change in it except that her heart size is a little larger now. She has been seen by Dr. Lee from the sleep lab. Please see his note. Home Medications Medication Instructions Recorded Confirmed Type No Known Home Medications [No 06/20/17 06/20/17 History Known Home Medications] Allergies Allergy/AdvReac Type Severity Reaction Status Date / Time No Known Allergies Allergy Verified 06/20/17 16:57 ROS unobtainable: due to mental status Exam (Pulmonay) H&P - Constitutional Vitals: Period Temp Pulse Resp BP Sys/Rosario Pulse Ox Last 24 Hr 96.4 F-97.0 F 46-56 10-20 92-136/45-74 89-97 Exam: Patient wearing facemask BiPAP. She sluggish but responsive. O2 sat 92%. Blood pressure about 90/50. Pulse around 50. Pupils react to light. Neck supple. Chest reveals equal breath sounds. I do not hear any rales or wheezes. Heart rate around 50 no murmurs. Abdomen soft no masses. Extremities no clubbing or cyanosis. Trace of edema at most. Medical,Surgical,& Family Hx - Medical History Cardio: History of: CHF Endocrine: History of: Diabetes Mellitus (NIDDM), Dyslipidemia Respiratory: History of: Pneumonia - Surgical History Abdominal Surgeries: Surgical HX of: Cholecystectomy - Family History Family History: Reports;: Family Heart Disease, Family Stroke - Social History Smoking Status: Former smoker Frequency of Alcohol Use: None Type of Drug Use: None Results - Labs CBC & BMP: 06/22/17 02:27 06/22/17 02:27 Lab Results: I have reviewed the past 24 hour labs - Diagnostic Findings Procedure: Chest x-ray: image reviewed by me (Cardiomegaly right midlung infiltrate left pleural reaction)
[2017-06-22 11:47] LABS: ABG PH 7.096 (7.35-7.45)
[2017-06-22] MEDS ORDERED: MIDAZOLAM 2 MG/2 ML VIAL IV ONE (12:00)
[2017-06-22] MEDS ORDERED: SUCCINYLCHOLINE 200 MG/10 ML VIAL ONE (12:04)
[2017-06-22] MEDS ORDERED: MIDAZOLAM 2 MG/2 ML VIAL ONE (12:04)
[2017-06-22] MEDS ORDERED: PROPOFOL 1,000 MG/100 ML BOTTLE IV ONE (12:10)
[2017-06-22] MEDS ORDERED: SODIUM CHLORIDE 0.9% 250 ML IV ONE (12:15)
[2017-06-22] MEDS ORDERED: PHENYLEPHRINE DRIP 40 MG/250 ML PREMIX IV ONE (12:18)
[2017-06-22] MEDS: PROPOFOL 1,000 MG/100 ML BOTTLE IV SCH (12:28)
[2017-06-22] MEDS: PHENYLEPHRINE DRIP 40 MG/250 ML PREMIX IV SCH (12:29)
[2017-06-22] MEDS ORDERED: PROPOFOL 200 MG/20 ML VIAL IV PRN (12:30)
--- NOTE | 2017-06-22 12:41 | Sleep Medicine Progress Note ---
Assessment and Plan (1) Unspecified sleep apnea Status: Acute Current Visit: Yes (2) Hypothyroidism Status: Acute Current Visit: Yes Qualifiers: Hypothyroidism type: acquired Qualified Code(s): E03.9 - Hypothyroidism, unspecified (3) Diabetes Status: Chronic Current Visit: Yes Sleep Medicine Subjective Interval history: This patient did undergo HST evaluation last night and it was an uninterpretable result. Her condition is deteriorated and she is requiring mechanical ventilation for acute respiratory failure and is being treated for possible myxedema coma. 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 Exam (Progress Note) - Constitutional Vitals: Period Temp Pulse Resp BP Sys/Rosario Pulse Ox Last 24 Hr 96.4 F-97.0 F 49-56 10-20 92-136/45-74 89-92 Results - Labs CBC & BMP: 06/22/17 02:27 06/22/17 02:27
--- NOTE | 2017-06-22 12:48 | XRay Report ---
XR chest 1V portable Indication: Intubated. Chest one view: Comparison yesterday. Endotracheal tube tip terminates at the origin of the right mainstem bronchus and should be withdrawn slightly. Cardiomegaly is unchanged. Worsening obscuration of both lung bases now present. Impression: Endotracheal tube at the ostium of the right mainstem bronchus. Withdraw slightly. Progressive bibasilar atelectasis or infiltrate. PROCEDURE INTERPRETED AT [facility] DEPARTMENT OF RADIOLOGY Final Report Signed by: Garfield Evans M.D.
[2017-06-22 12:49] LABS: Apearance,Urine CLEAR (Clear); Bilirubin,Urine Negative (Negative); Blood, Urine Negative (Negative); Glucose,Urine (UA) Negative (Negative); Ketones,Urine Negative (Negative); Mucus,Urine Occasional /LPF (Occasional); Nitrite,Urine Negative (Negative); Protein,Urine 30 MG/DL; Urine Color Yellow (Yellow); Urine Specific Gravity 1.019 (1.001-1.035); WBC,Urine <1 /HPF (0-6)
--- NOTE | 2017-06-22 13:38 | XRay Report ---
XR chest 1V portable Indication: Intubated. Chest one view: Endotracheal tube has been withdrawn and is now 1 cm cephalad the maria ines. The remainder of the exam is unchanged with continued atelectasis or infiltrate of the lung bases. Impression: Adequately adjusted endotracheal tube position. PROCEDURE INTERPRETED AT [facility] DEPARTMENT OF RADIOLOGY Final Report Signed by: Garfield Evans M.D.
--- NOTE | 2017-06-22 14:11 | EKG Report ---
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 POSSIBLE RIGHT VENTRICULAR HYPERTROPHY MODERATE T-WAVE ABNORMALITY, CONSIDER ANTEROLATERAL ISCHEMIA MODERATE T-WAVE ABNORMALITY, CONSIDER INFERIOR ISCHEMIA Electronically Signed On 06-22-17 17:24:02 CDT by PAM LORA [email or web address]
[2017-06-22] MEDS: HYDROCORTISONE 100 MG VIAL IV SCH (14:35)
[2017-06-22 14:50] LABS: ABG Base Excess 9.4 MMOL/L (-2.5-2.5); ABG HCO3 33.2 MMOL/L (20-26); ABG Oxygen Saturation 97.8 % (95-100); ABG PCO2 42.6 MM HG (35-48); ABG PH 7.505 (7.35-7.45); ABG TCO2 30.2 MMOL/L (23-27)
[2017-06-22] MEDS: MIDAZOLAM 100 MG in SODIUM CHLORIDE 0.9% 80 ML IV SCH (15:04)
[2017-06-22] MEDS: LEVOFLOXACIN INJ 500 MG in PREMIX 1 EACH IV SCH (16:57)
--- NOTE | 2017-06-22 17:45 | Event Note ---
Procedure note Endotracheal intubation Patient seen and examined. Case discussed with nursing staff. Labs reviewed. The patient was transferred to the intensive care unit for worsening lethargy. ABG reveals respiratory acidosis with significantly elevated PCO2 levels. The patient failed a trial of BiPAP and now requires mechanical ventilation and endotracheal intubation for acute respiratory failure with severe respiratory acidosis. The case was discussed with Dr. Sabillon at the bedside. - Intubation Sedative: Versed Mg given sedative: 6 mg Paralytic: None Mg given paralytic: None Laryngoscope: Britney 4 ET Tube Size: 7.5 Tube Secured Depth (cm): 23 Tube Secured Location: lips Tube Placement Confirmation: visualized tube passing through cords, equal breath sounds bilaterally, no breath sounds over epigastrium, confirmation by capnometry, confirmation detector color change Patient tolerated procedure intubation: well, no complications Intubation Complications: None Additional Comments: Chest x-ray was reviewed. The endotracheal tube was pulled back slightly and a repeat chest x-ray confirms adequate positioning.
[2017-06-22 17:46] LABS: ABG Base Excess 10.1 MMOL/L (-2.5-2.5); ABG HCO3 33.9 MMOL/L (20-26); ABG Oxygen Saturation 97.8 % (95-100); ABG PCO2 30.7 MM HG (35-48); ABG TCO2 28.6 MMOL/L (23-27)
[2017-06-22 17:47] LABS: ABG PH 7.622 (7.35-7.45)
[2017-06-22] MEDS: ATORVASTATIN 20 MG TABLET PO SCH (21:51)
[2017-06-22] MEDS: FAMOTIDINE 8 MG/ML 50 ML/BOTTLE PO SCH (21:51)
[2017-06-23] MEDS: HYDROCORTISONE 100 MG VIAL IV SCH ×2 (00:40→13:48)
[2017-06-23 03:26] LABS: ABG Base Excess 5.2 MMOL/L (-2.5-2.5); ABG HCO3 29.1 MMOL/L (20-26); ABG Oxygen Saturation 97.3 % (95-100); ABG PH 7.515 (7.35-7.45); ABG TCO2 25.5 MMOL/L (23-27); Allen Test Positive; Pt O2 Delivery Device Ventilator
--- NOTE | 2017-06-23 06:13 | Pulmonology Progress Note ---
Pulmonary - PN: Subj Interval history: This 56-year-old black female came in with bradycardia and acute respiratory failure. Her PCO2 was in the 100s. We were not able to get it turned around with BiPAP. She is now on the ventilator. ABGs look good now. It appears that she has severe hypothyroidism. We have started her on Synthroid. I added Solu-Cortef as sometimes these people have adrenal insufficiency. She is more responsive this morning. She is on empiric antibiotics. It will likely take a few days for the thyroid replacement to be effective. She also has apparent obstructive sleep apnea, however the sleep study that was done was not interpretable. Please see Dr. Green's note. Exam (Progress Note) - Constitutional Vitals: Period Temp Pulse Resp BP Sys/Rosario Pulse Ox Last 24 Hr 96.5 F-97.3 F 38-60 10-21 92-153/11-117 89-100 Exam: She is somewhat responsive. Pupils are reactive. Orotracheal tube in place. Neck supple no bruits. Chest reveals a few basilar rhonchi. Heart rates around 50 no murmurs. Abdomen soft nontender no masses. Extremities no clubbing cyanosis edema. Results - Labs CBC & BMP: 06/22/17 02:27 06/22/17 02:27 Lab Results: I have reviewed the past 24 hour labs - Diagnostic Findings Procedure: Chest x-ray: image reviewed by me (ET tube was in good position after being adjusted yesterday. Slight interstitial infiltrates bilaterally.) Assessment and Plan (1) Acute respiratory failure Status: Acute Assessment and plan: She has a PCO2 of 131 and a pH of 7.09 on BiPAP with 100% oxygen. Do not have the PO2 out yet. Clearly she has not responded to BiPAP. She needs intubation and mechanical ventilation. The respiratory failure is probably due to severe hypothyroidism with early myxedema coma. Also likely has obstructive sleep apnea and or obesity hypoventilation syndrome 06/23/2017 ABGs look good on the ventilator. We can start trying CPAP trials. This will tell us about the status of her thyroid replacement. If she is not having adequate minute ventilation on CPAP 10 we will need to wait on weaning. Current Visit: Yes (2) Hypothyroidism Status: Acute Assessment and plan: TSH 83 with a very low free T4. Clearly she is profoundly hypothyroid. Agree with replacing with Synthroid. It will take several days to get her thyroid condition corrected with medications. 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 Hopefully replacing thyroid for a few days will get this corrected enough that she can be weaned. Current Visit: Yes Qualifiers: Hypothyroidism type: acquired Qualified Code(s): E03.9 - Hypothyroidism, unspecified (3) Unspecified sleep apnea Status: Acute Assessment and plan: Likely has sleep apnea based on her history and physical exam. This is clearly aggravated by her hypothyroidism. BiPAP does not appear to be working at this point. She needs mechanical ventilation and then can wean when her hypothyroid is better controlled 06/23/2017 she had a home sleep study done but it was not interpretable. Certainly has signs and symptoms of obstructive sleep apnea. Current Visit: Yes (4) Diabetes Status: Chronic Assessment and plan: Glucoses look okay 06/23/2017 glucoses look good. Current Visit: Yes
[2017-06-23] MEDS: LEVOTHYROXINE 100 MCG VIAL IV SCH (06:46)
[2017-06-23 06:57] LABS: Basophils % 0.3 % (0.0-0.8); Eosinophils % 0.2 % (0.00-10.9); Hematocrit 33.7 VOL% (35.7-47.0); Hemoglobin 11.1 GM/DL (12.0-16.0); Immature Granulocytes % 3.2 %; Immature Granulocytes Absolute 0.21 #; Lymphocytes # 1.3 10*3/uL (1.4-4.0); Lymphocytes % 19.7 % (21.3-54.2); Mean Corpuscular HGB Conc 32.9 GM/DL (32-36); Mean Corpuscular Hemoglobin 33 PG (27-34); Mean Corpuscular Volume 100.6 FL (87-102); Mean Platelet Volume 12.4 FL (9.6-12.0); Monocytes # 0.5 10*3/uL (0.11-0.8); Monocytes % 7.8 % (1.7-12.7); NRBC # 0.07 10*3/uL; Neutrophils # 4.5 10*3/uL (1.4-7.4); Neutrophils % 68.8 % (38.7-73.9); Platelet Count 58 T/CUMM (130-400); Red Blood Count 3.35 MC/CUMM (3.8-5.5); Red Cell Distribution Width 16.2 % (9.3-17.3); White Blood Count 6.5 T/CUMM (4-12)
[2017-06-23 07:05] LABS: Calcium 8.5 MG/DL (8.5-10.1); Magnesium 2.5 MG/DL (1.8-2.4); Osmolality,Calculated 281.1 MOS/KG (273-304); Potassium 3.5 MMOL/L (3.5-5.1)
[2017-06-23 07:24] LABS: Platelet Estimate Decreased
[2017-06-23 07:25] LABS: Hypochromasia 1+
[2017-06-23] MEDS: INSULIN LISPRO 100 UNIT/ML SUBCUT SCH ×3 (07:45→16:20)
[2017-06-23] MEDS: LEVOTHYROXINE 25 MCG TABLET PO SCH (07:53)
--- NOTE | 2017-06-23 08:09 | Cardiology Progress Note ---
Assessment and Plan (1) Bradycardia Status: Acute Assessment and plan: SEE PLAN OF CARE LISTED BELOW. Current Visit: Yes (2) Hypothyroidism Status: Acute Assessment and plan: SEE PLAN OF CARE LISTED BELOW. Current Visit: Yes Qualifiers: Hypothyroidism type: acquired Qualified Code(s): E03.9 - Hypothyroidism, unspecified (3) Cardiomegaly Status: Acute Assessment and plan: SEE PLAN OF CARE LISTED BELOW. Current Visit: Yes (4) Hyperlipidemia Status: Chronic Assessment and plan: SEE PLAN OF CARE LISTED BELOW. Current Visit: Yes (5) Obesity Status: Chronic Assessment and plan: SEE PLAN OF CARE LISTED BELOW. Current Visit: Yes Qualifiers: Obesity type: due to excess calories Serious obesity comorbidity presence: with serious comorbidity Body mass index: BMI 45.0-49.9 (6) Orthopnea Status: Chronic Assessment and plan: SEE PLAN OF CARE LISTED BELOW. Current Visit: Yes (7) Bilateral lower extremity edema Status: Acute Assessment and plan: SEE PLAN OF CARE LISTED BELOW. Current Visit: Yes (8) Pancytopenia Status: Acute Assessment and plan: SEE PLAN OF CARE LISTED BELOW. Current Visit: Yes (9) Abnormal EKG Status: Acute Assessment and plan: SEE PLAN OF CARE LISTED BELOW. Current Visit: Yes (10) Snoring Status: Chronic Assessment and plan: SEE PLAN OF CARE LISTED BELOW. Current Visit: Yes (11) Daytime sleepiness Status: Chronic Assessment and plan: SEE PLAN OF CARE LISTED BELOW. Current Visit: Yes (12) CHF (congestive heart failure) Status: Chronic Assessment and plan: SEE PLAN OF CARE LISTED BELOW. Current Visit: Yes Qualifiers: Congestive heart failure type: diastolic Congestive heart failure chronicity: chronic Qualified Code(s): I50.32 - Chronic diastolic (congestive ) heart failure (13) Diabetes Status: Chronic Assessment and plan: SEE PLAN OF CARE LISTED BELOW. Current Visit: Yes (14) Pneumonia Status: Acute Assessment and plan: SEE PLAN OF CARE LISTED BELOW. 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 Herndon SUMMARY Ms. Juarez is a 56 year old female patient without known history of coronary artery disease, not routinely followed by cardiology. Patient has cardiac risk factors significant for diabetes, hyperlipidemia, obesity, family history of heart disease (brother and mother), former smoker and sedentary lifestyle. Patient has past medical history of hypertension, congestive heart failure and Harrison's palsy. Patient reports that she does not take any medications at home. She tells me that her doctor took her off of all of her medication several years ago. She is a poor historian and does not know much about her health conditions. She reports that she has never been seen by diabetes nurse. When asked to manages her heart failure she reports that she gave up on doctors a long time ago. Therefore, she has not followed up routinely with her PCP. Never undergone cardiac workup. Denies previous LHC/stress testing. Patient was transferred from [facility] for further evaluation of bradycardia and pneumonia. At our facility, she was noted to have severe hypothyroidism. Synthroid treatment was initiated. She is currently being treated for pneumonia with IV antibiotics. Echocardiogram was performed yesterday which revealed normal systolic function, ejection fraction greater than 55%. Diastolic dysfunction was noted. Small pericardial effusion. Moderate sized left pleural effusion. JUNE 23, 2017 UPDATE Patient was seen and examined in the CCU. She was transferred downstairs yesterday for respiratory acidosis. She failed treatment with BiPAP and was subsequently intubated and placed on the ventilator. Patient continues to be sedated and ventilated. She continues to be bradycardic with heart rates ranging in the high 30s to low 40s. She is requiring Buck-Synephrine for blood pressure support. We can consider to change this to dopamine in order to help her bradycardia. Suspect that her bradycardia is secondary to her severe hypothyroidism. Hopeful that this will improve as she continues with IV Synthroid. Patient continues to be pancytopenic. Avoiding Lovenox, DVT prophylaxis, due to his low platelet count. TSH was rechecked and has improved. today it is 69.7. Continue IV Synthroid. Labs have been reviewed. I will further discuss with Dr. Nova and await his additional recommendations. ASSESSMENT/PLAN 1. BRADYCARDIA - Suspect that this is related to patient's severe hypothyroidism. Hopeful that this will improve with IV levothyroxine. Patient is requiring vasopressors currently. Can consider changing from Buck-Synephrine to dopamine in hopes to improve her bradycardia. Can consider pacemaker in her future if this is not improved with treatment of her thyroid dysfunction. 2. PNEUMONIA - Continue Levaquin. Management per attending. 3. 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 Continue Synthroid. Management per attending 4. HISTORY OF CHF, DIASTOLIC DYSFUNCTION - Per patient report, she has history of congestive heart failure. She appears to be compensated at this time. BNP 6. Echocardiogram revealed normal systolic function with ejection fraction greater than 55%. She does have diastolic dysfunction. Unable to initiate beta-blockade at this time due to bradycardia. Will add JELENA inhibitor/ ARB when blood pressures are more stable. Can consider adding p.o. diuretics. 5. HISTORY OF DIABETES - Hemoglobin A1c 6.5. Per patient report, she was taken off of her diabetic medication several years ago. Continue sliding scale insulin, Accu-Cheks before meals and at bedtime. Management per attending. 6. HYPERLIPIDEMIA - Lipid panel reviewed. LDL greater than 100. Triglycerides 130. Continue lipid-lowering agent. 7. OBESITY - Weight loss encouraged. Treatment of her hypothyroidism should assist in weight loss. 8. ORTHOPNEA - echocardiogram reveals diastolic dysfunction. No overt heart failure noted. Will initiate beta-blockade/JELENA inhibitor when blood pressure and heart rate will allow. Can consider addition of p.o. diuretics at discharge. 9. BILATERAL LOWER EXTREMITY EDEMA/TENDERNESS - This appears to be chronic. Venous Dopplers did not reveal evidence of DVT. 10. PANCYTOPENIA - Will defer further workup of this to attending. 11. SNORING/DAYTIME SLEEPINESS - Workup underway per Dr. Lee. 12. ACUTE RESPIRATORY FAILURE - Thought to be secondary to myxedema coma. Management per attending/pulmonary. 13. HYPOTENSION - Currently requiring vasopressors. Can consider changing from Buck-Synephrine to dopamine in hopes to improve her bradycardia. I will discuss this with Dr. herndon. Exam (Progress Note) - Constitutional Vitals: Period Temp Pulse Resp BP Sys/Rosario Pulse Ox Last 24 Hr 96.5 F-97.3 F 38-60 10-22 92-153/11-117 90-100 Exam: General: Sedated and ventilated HEENT: PERRL, normocephalic, atraumatic. Mucous membranes moist. No jaundice noted. Conjunctiva moist and clear, sclerae anicteric Neck: No JVD/HJR. No carotid bruit appreciated Cardiac: Regular rate and rhythm. No murmur rub or gallop. Lungs: Decreased lung sounds. Oxygen via ventilation Abdomen: Soft, bowel sounds normoactive. Nontender and nondistended. No abdominal bruit or thrill noted. No masses noted. Extremities: No clubbing, cyanosis noted. 1+ bilateral lower extremity edema, tender to palpation. Upper extremity pulses 2+. Lower extremity pulses 2+. Capillary refill less than 3 seconds. Skin: No unusual lesions or rashes. No skin breakdown appreciated. Neuro: Unable to fully assess as patient is sedated and ventilated Result/EKG - Labs CBC & BMP: 06/23/17 06:14 06/23/17 06:14 Labs: Laboratory Results - last 24 hr 06/21/17 06/21/17 06/22/17 10:51 10:52 08:07 WBC RBC Hgb Hct MCV MCH MCHC RDW Plt Count MPV Neut % (Auto) Lymph % (Auto) Jones % (Auto) Eos % (Auto) Baso % (Auto) Neut # (Auto) Lymph # (Auto) Jones # (Auto) Eos # (Auto) Baso # (Auto) Immature Gran % Nucleated RBC % Immature Gran # Nucleated RBCs # Anemia Panel Interp See comment Platelet Estimate Immature Plt Fraction Hypochromasia Morphology Comment Hemoglobin A1 97.5 Hemoglobin A2 2.5 Hemoglobin C Not Reportable Hemoglobin D Not Reportable Hemoglobin E Not Reportable Hemoglobin F (ELP) Not Reportable Hemoglobin G Not Reportable Hemoglobin S Not Reportable Hgb ELP Interp ABG pH ABG pCO2 ABG pO2 ABG HCO3 ABG Total CO2 ABG O2 Saturation ABG Base Excess FiO2 Sodium Potassium Chloride Carbon Dioxide Anion Gap BUN Creatinine GFR Calculation BUN/Creatinine Ratio Glucose POC Glucose 115 H Calculated Osmolality Calcium Magnesium TSH 3rd Generation Urine Color Urine Appearance Urine pH Ur Specific [place] Urine Protein Urine Glucose (UA) Urine Ketones Urine Blood Urine Nitrate Urine Bilirubin Urine Urobilinogen Urine Leukocytes Urine WBC Urine Mucus Ur Culture Indicated? 06/22/17 06/22/17 06/22/17 09:45 11:15 11:40 WBC RBC Hgb Hct MCV MCH MCHC RDW Plt Count MPV Neut % (Auto) Lymph % (Auto) Jones % (Auto) Eos % (Auto) Baso % (Auto) Neut # (Auto) Lymph # (Auto) Jones # (Auto) Eos # (Auto) Baso # (Auto) Immature Gran % Nucleated RBC % Immature Gran # Nucleated RBCs # Anemia Panel Interp Platelet Estimate Immature Plt Fraction Hypochromasia Morphology Comment Hemoglobin A1 Hemoglobin A2 Hemoglobin C Hemoglobin D Hemoglobin E Hemoglobin F (ELP) Hemoglobin G Hemoglobin S Hgb ELP Interp ABG pH 7.102 L* 7.096 L* ABG pCO2 126.0 H* 131.0 H* ABG pO2 75.6 L 68.1 L ABG HCO3 28.5 H 29.2 H ABG Total CO2 37.3 H 38.4 H ABG O2 Saturation 92.6 L 90.3 L ABG Base Excess 4.6 H 5.4 H FiO2 Sodium Potassium Chloride Carbon Dioxide Anion Gap BUN Creatinine GFR Calculation BUN/Creatinine Ratio Glucose POC Glucose 103 Calculated Osmolality Calcium Magnesium TSH 3rd Generation Urine Color Urine Appearance Urine pH Ur Specific [place] Urine Protein Urine Glucose (UA) Urine Ketones Urine Blood Urine Nitrate Urine Bilirubin Urine Urobilinogen Urine Leukocytes Urine WBC Urine Mucus Ur Culture Indicated? 06/22/17 06/22/17 06/22/17 12:30 14:50 16:41 WBC RBC Hgb Hct MCV MCH MCHC RDW Plt Count MPV Neut % (Auto) Lymph % (Auto) Jones % (Auto) Eos % (Auto) Baso % (Auto) Neut # (Auto) Lymph # (Auto) Jones # (Auto) Eos # (Auto) Baso # (Auto) Immature Gran % Nucleated RBC % Immature Gran # Nucleated RBCs # Anemia Panel Interp Platelet Estimate Immature Plt Fraction Hypochromasia Morphology Comment Hemoglobin A1 Hemoglobin A2 Hemoglobin C Hemoglobin D Hemoglobin E Hemoglobin F (ELP) Hemoglobin G Hemoglobin S Hgb ELP Interp ABG pH 7.505 H ABG pCO2 42.6 ABG pO2 213.0 H ABG HCO3 33.2 H ABG Total CO2 30.2 H ABG O2 Saturation 97.8 ABG Base Excess 9.4 H FiO2 Sodium Potassium Chloride Carbon Dioxide Anion Gap BUN Creatinine GFR Calculation BUN/Creatinine Ratio Glucose POC Glucose 104 Calculated Osmolality Calcium Magnesium TSH 3rd Generation Urine Color Yellow Urine Appearance Clear Urine pH 5.0 Ur Specific [place] 1.019 Urine Protein 30 Urine Glucose (UA) Negative Urine Ketones Negative Urine Blood Negative Urine Nitrate Negative Urine Bilirubin Negative Urine Urobilinogen 2.0 H Urine Leukocytes Negative Urine WBC <1 Urine Mucus Occasional Ur Culture Indicated? Not indicated 06/22/17 06/22/17 06/23/17 17:00 21:11 03:14 WBC RBC Hgb Hct MCV MCH MCHC RDW Plt Count MPV Neut % (Auto) Lymph % (Auto) Jones % (Auto) Eos % (Auto) Baso % (Auto) Neut # (Auto) Lymph # (Auto) Jones # (Auto) Eos # (Auto) Baso # (Auto) Immature Gran % Nucleated RBC % Immature Gran # Nucleated RBCs # Anemia Panel Interp Platelet Estimate Immature Plt Fraction Hypochromasia Morphology Comment Hemoglobin A1 Hemoglobin A2 Hemoglobin C Hemoglobin D Hemoglobin E Hemoglobin F (ELP) Hemoglobin G Hemoglobin S Hgb ELP Interp ABG pH 7.622 H* 7.515 H ABG pCO2 30.7 L 35.0 ABG pO2 101.0 H 118.0 H ABG HCO3 33.9 H 29.1 H ABG Total CO2 28.6 H 25.5 ABG O2 Saturation 97.8 97.3 ABG Base Excess 10.1 H 5.2 H FiO2 60.00 Sodium Potassium Chloride Carbon Dioxide Anion Gap BUN Creatinine GFR Calculation BUN/Creatinine Ratio Glucose POC Glucose 99 Calculated Osmolality Calcium Magnesium TSH 3rd Generation Urine Color Urine Appearance Urine pH Ur Specific [place] Urine Protein Urine Glucose (UA) Urine Ketones Urine Blood Urine Nitrate Urine Bilirubin Urine Urobilinogen Urine Leukocytes Urine WBC Urine Mucus Ur Culture Indicated? 06/23/17 06/23/17 06/23/17 06:14 06:14 06:14 WBC 6.5 D RBC 3.35 L Hgb 11.1 L Hct 33.7 L MCV 100.6 MCH 33 MCHC 32.9 RDW 16.2 Plt Count 58 L D MPV 12.4 H Neut % (Auto) 68.8 Lymph % (Auto) 19.7 L Jones % (Auto) 7.8 Eos % (Auto) 0.2 Baso % (Auto) 0.3 Neut # (Auto) 4.5 Lymph # (Auto) 1.3 L Jones # (Auto) 0.5 Eos # (Auto) 0.0 Baso # (Auto) 0.0 Immature Gran % 3.2 Nucleated RBC % 1.1 Immature Gran # 0.21 Nucleated RBCs # 0.07 Anemia Panel Interp Platelet Estimate Decreased Immature Plt Fraction 8.6 H Hypochromasia 1+ Morphology Comment Hemoglobin A1 Hemoglobin A2 Hemoglobin C Hemoglobin D Hemoglobin E Hemoglobin F (ELP) Hemoglobin G Hemoglobin S Hgb ELP Interp ABG pH ABG pCO2 ABG pO2 ABG HCO3 ABG Total CO2 ABG O2 Saturation ABG Base Excess FiO2 Sodium 142 Potassium 3.5 Chloride 106 Carbon Dioxide 27 Anion Gap 12.5 BUN 10 Creatinine 0.90 GFR Calculation 89 BUN/Creatinine Ratio 11.00 Glucose 94 POC Glucose Calculated Osmolality 281.1 Calcium 8.5 Magnesium 2.5 H TSH 3rd Generation 69.700 H Urine Color Urine Appearance Urine pH Ur Specific [place] Urine Protein Urine Glucose (UA) Urine Ketones Urine Blood Urine Nitrate Urine Bilirubin Urine Urobilinogen Urine Leukocytes Urine WBC Urine Mucus Ur Culture Indicated? 06/23/17 07:26 WBC RBC Hgb Hct MCV MCH MCHC RDW Plt Count MPV Neut % (Auto) Lymph % (Auto) Jones % (Auto) Eos % (Auto) Baso % (Auto) Neut # (Auto) Lymph # (Auto) Jones # (Auto) Eos # (Auto) Baso # (Auto) Immature Gran % Nucleated RBC % Immature Gran # Nucleated RBCs # Anemia Panel Interp Platelet Estimate Immature Plt Fraction Hypochromasia Morphology Comment Hemoglobin A1 Hemoglobin A2 Hemoglobin C Hemoglobin D Hemoglobin E Hemoglobin F (ELP) Hemoglobin G Hemoglobin S Hgb ELP Interp ABG pH ABG pCO2 ABG pO2 ABG HCO3 ABG Total CO2 ABG O2 Saturation ABG Base Excess FiO2 Sodium Potassium Chloride Carbon Dioxide Anion Gap BUN Creatinine GFR Calculation BUN/Creatinine Ratio Glucose POC Glucose 124 H Calculated Osmolality Calcium Magnesium TSH 3rd Generation Urine Color Urine Appearance Urine pH Ur Specific [place] Urine Protein Urine Glucose (UA) Urine Ketones Urine Blood Urine Nitrate Urine Bilirubin Urine Urobilinogen Urine Leukocytes Urine WBC Urine Mucus Ur Culture Indicated?
[2017-06-23] MEDS: FAMOTIDINE 8 MG/ML 50 ML/BOTTLE PO SCH ×2 (09:31→21:29)
[2017-06-23] MEDS: LEVOFLOXACIN INJ 500 MG in PREMIX 1 EACH IV SCH (16:21)
[2017-06-23] MEDS: PROPOFOL 1,000 MG/100 ML BOTTLE IV SCH (18:22)
[2017-06-23] MEDS: PHENYLEPHRINE DRIP 40 MG/250 ML PREMIX IV SCH (18:22)
[2017-06-23] MEDS ORDERED: ATROPINE 1 MG/1 ML VIAL ONE (18:59)
[2017-06-23] MEDS ORDERED: ATROPINE 1 MG/10 ML SYRINGE IV PRN (19:00)
--- NOTE | 2017-06-23 19:21 | Hospitalist Progress Note ---
Hospitalist: Subjective Interval history: 56-year-old female with severe hypothyroidism admitted with sinus bradycardia and acute hypoxemic and hypercapnic respiratory failure requiring ventilation. Exam - Constitutional Vitals: Period Temp Pulse Resp BP Sys/Rosario Pulse Ox Last 24 Hr 96.5 F-97.5 F 35-72 5-22 97-150/58-96 92-100 Exam: Constitutional System: No distress. No tremulousness. Morbidly obese Head: Normocephalic, atraumatic. Ears, Nose and Throat System: No pain or tenderness. No epistaxis or discharge Eyes System: Pupils equal, round, and reactive. Extraocular muscles intact. Neck: Supple, without adenopathy, No jugular venous distention. Respiratory System: Chest clear to auscultation. Cardiovascular System: Heart with regular rate and rhythm. No murmur. GI System: Abdomen soft, nontender. Normo active bowel sounds present. Musculoskeletal System: limbs with bilateral pitting pedal edema. Full distal pulses. Neurological System: No gross sensory deficits Results - Labs CBC & BMP: 06/23/17 06:14 06/23/17 06:14 - Impressions Assessment and Plan: (1) Acute hypoxemic and hypercapnic respiratory failure Status: Acute Assessment and plan: She is on mechanical ventilation. Myxedema coma, obstructive sleep apnea and or obesity hypoventilation syndrome appear contributory to her respiratory failure. 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 Continue IV Synthroid 100 mcg daily. Continue IV hydrocortisone 50 mg every 12h Current Visit: Yes Qualifiers: Hypothyroidism type: acquired Qualified Code(s): E03.9 - Hypothyroidism, unspecified (3) Unspecified sleep apnea Status: Acute Assessment and plan: Likely has sleep apnea based on her presentation Current Visit: Yes (4) Diabetes-II Status: Chronic Assessment and plan: This is controlled (5) Bibasilar bacterial pneumonia Status: Acute Assessment and plan: Continue IV Levaquin Current Visit: Yes (6) Thrombocytopenia Status: Acute Assessment and plan: Monitor CBC Current Visit: Yes
[2017-06-23] MEDS: ATORVASTATIN 20 MG TABLET PO SCH (21:29)
[2017-06-24] MEDS: INSULIN LISPRO 100 UNIT/ML SUBCUT SCH ×5 (00:10→23:54)
[2017-06-24] MEDS: MIDAZOLAM 100 MG in SODIUM CHLORIDE 0.9% 80 ML IV SCH (00:55)
[2017-06-24] MEDS: HYDROCORTISONE 100 MG VIAL IV SCH ×2 (00:57→14:25)
[2017-06-24 02:59] LABS: ABG Base Excess 1.8 MMOL/L (-2.5-2.5); ABG HCO3 25.7 MMOL/L (20-26); ABG Oxygen Saturation 78.8 % (95-100); ABG PCO2 64.3 MM HG (35-48); ABG PH 7.281 (7.35-7.45); ABG PO2 50.5 MM HG (80-95); ABG TCO2 27.7 MMOL/L (23-27); Allen Test Positive; Pt O2 Delivery Device Ventilator
[2017-06-24 05:53] LABS: Basophils % 0.1 % (0.0-0.8); Eosinophils % 0.1 % (0.00-10.9); Hematocrit 33.2 VOL% (35.7-47.0); Hemoglobin 10.5 GM/DL (12.0-16.0); Immature Granulocytes % 1.5 %; Immature Granulocytes Absolute 0.14 #; Lymphocytes % 10.6 % (21.3-54.2); Mean Corpuscular HGB Conc 31.6 GM/DL (32-36); Mean Corpuscular Hemoglobin 32 PG (27-34); Mean Corpuscular Volume 101.2 FL (87-102); Mean Platelet Volume 11.7 FL (9.6-12.0); Monocytes # 0.6 10*3/uL (0.11-0.8); Monocytes % 6.3 % (1.7-12.7); Neutrophils # 7.5 10*3/uL (1.4-7.4); Neutrophils % 81.4 % (38.7-73.9); Platelet Count 64 T/CUMM (130-400); Red Blood Count 3.28 MC/CUMM (3.8-5.5); Red Cell Distribution Width 16.4 % (9.3-17.3); White Blood Count 9.2 T/CUMM (4-12)
[2017-06-24 06:27] LABS: Calcium 8.2 MG/DL (8.5-10.1); Magnesium 2.6 MG/DL (1.8-2.4); Osmolality,Calculated 283.1 MOS/KG (273-304); Potassium 3.3 MMOL/L (3.5-5.1)
[2017-06-24] MEDS: LEVOTHYROXINE 100 MCG VIAL IV SCH (06:27)
[2017-06-24 06:40] LABS: Phosphorous 3.3 MG/DL (2.5-4.9); Prealbumin 15.1 MG/DL (20-40)
--- NOTE | 2017-06-24 07:09 | Pulmonology Progress Note ---
Pulmonary - PN: Subj Interval history: Patient with myxedema coma, intubated secondary to CO2 retention. Adjusted vent settings last night in the settting of persistent resp alkalsosis. Overshot, and patient is mildly acidemic this morning. She was on SIMV so unsure what her rate has been doing overnight. She remains bradycardic, no other issues per nursing Exam (Progress Note) - Constitutional Vitals: Period Temp Pulse Resp BP Sys/Rosario Pulse Ox Last 24 Hr 96.9 F-97.4 F 35-72 5-27 97-142/58-89 92-100 General appearance: over weight - Head Head exam: Present: normal inspection - ENT ENT exam: Present: other (ET tube in place) - Respiratory Respiratory exam: Present: clear to auscultation bilaterally - Cardiovascular Cardiovascular exam: Present: bradycardia - GI/Abdominal GI/Abdominal exam: Present: normal bowel sounds Results - Labs CBC & BMP: 06/24/17 05:20 06/24/17 05:20 Lab Results: I have reviewed the past 24 hour labs Labs: 7.28/64/50 - Diagnostic Findings Procedure: Chest x-ray: image reviewed by me (no effusions or infiltrates on my read) Assessment and Plan (1) Acute respiratory failure Status: Acute Assessment and plan: Patient with hypercapnic respiratory failure in the setting of myxedema coma. Will place on AC and recheck gas. If able to improve, will start to do SBTs today Current Visit: Yes
[2017-06-24 07:47] LABS: ABG Base Excess 2.6 MMOL/L (-2.5-2.5); ABG HCO3 26.6 MMOL/L (20-26); ABG Oxygen Saturation 94.5 % (95-100); ABG PCO2 57.9 MM HG (35-48); ABG PH 7.325 (7.35-7.45); ABG PO2 78.7 MM HG (80-95); ABG TCO2 26.8 MMOL/L (23-27); Allen Test Positive; Pt O2 Delivery Device Ventilator
[2017-06-24] MEDS: LEVOTHYROXINE 25 MCG TABLET PO SCH (08:47)
[2017-06-24] MEDS: FAMOTIDINE 8 MG/ML 50 ML/BOTTLE PO SCH ×2 (08:48→20:09)
--- NOTE | 2017-06-24 09:49 | XRay Report ---
XR chest 1V portable Indication: Pneumonia. Chest one view: Comparison 2 days ago shows stable endotracheal tube, NG tube, cardiomegaly and continued obscuration of the left lung base. There still reticular prominence of the remainder of the lungs. Impression: No appreciable change. PROCEDURE INTERPRETED AT [facility] DEPARTMENT OF RADIOLOGY Final Report Signed by: Garfield Evans M.D.
--- NOTE | 2017-06-24 12:47 | Cardiology Progress Note ---
Assessment and Plan - Time spent with patient Time spent with patient: Greater than 30 minutes (1) Bradycardia Status: Acute Assessment and plan: The bradycardia is less with giving the IV levothyroxine, heart rate has been now in the 50s. Has not required atropine for the last 24-36 hours Since she is getting the IV levothyroxine I will discontinue the oral levothyroxine Attempting to wean, but her CO2 is rising. She may have to have mild chronic respiratory failure to get off the ventilator Neurologically she seems intact. She seems to understand when I ask her to do commands. Continue slow wean. Optimize treatment her lungs. I suspect obesity hypoventilation syndrome as part of her rising CO2. Current Visit: Yes (2) Acute respiratory failure Status: Acute Current Visit: Yes (3) Bilateral lower extremity edema Status: Acute Current Visit: Yes (4) Cardiomegaly Status: Acute Current Visit: Yes (5) Hypothyroidism Status: Acute Current Visit: Yes Qualifiers: Hypothyroidism type: acquired Qualified Code(s): E03.9 - Hypothyroidism, unspecified (6) Pancytopenia Status: Acute Current Visit: Yes (7) Pneumonia Status: Acute Current Visit: Yes (8) Unspecified sleep apnea Status: Acute Current Visit: Yes (9) CHF (congestive heart failure) Status: Chronic Current Visit: Yes Qualifiers: Congestive heart failure type: diastolic Congestive heart failure chronicity: chronic Qualified Code(s): I50.32 - Chronic diastolic (congestive ) heart failure (10) Daytime sleepiness Status: Chronic Current Visit: Yes (11) Diabetes Status: Chronic Current Visit: Yes (12) Hyperlipidemia Status: Chronic Current Visit: Yes (13) Obesity Status: Chronic Current Visit: Yes Qualifiers: Obesity type: due to excess calories Serious obesity comorbidity presence: with serious comorbidity Body mass index: BMI 45.0-49.9 (14) Snoring Status: Chronic Current Visit: Yes Cardiology - PN: Subj Interval history: Seems awake to talk to her. Can move hands. Neurologically seems intact. Exam (Progress Note) - Constitutional Vitals: Period Temp Pulse Resp BP Sys/Rosario Pulse Ox Last 24 Hr 96.9 F-97.4 F 40-63 10-27 97-146/58-87 94-100 Exam: HEENT: Pupils equal, reactive to light and accommodation Neck: NoJVD or bruit Lungs clear to auscultation Heart: Regular rhythm rate with normal S1 and S2. Apical S4 Abdomen: No hepatosplenomegaly Spine/extremities: No clubbing, cyanosis, or edema Neuro: Nonfocal, except sedated Psych: No depression or anxiety Result/EKG - Labs CBC & BMP: 06/24/17 05:20 06/24/17 05:20 Lab Results: I have reviewed the past 24 hour labs Labs: Laboratory Results - last 24 hr 06/23/17 06/23/17 06/24/17 16:04 23:50 02:50 WBC RBC Hgb Hct MCV MCH MCHC RDW Plt Count MPV Neut % (Auto) Lymph % (Auto) Holt % (Auto) Eos % (Auto) Baso % (Auto) Neut # (Auto) Lymph # (Auto) Holt # (Auto) Eos # (Auto) Baso # (Auto) Immature Gran % Nucleated RBC % Immature Gran # Nucleated RBCs # Immature Plt Fraction ABG pH 7.281 L ABG pCO2 64.3 H ABG pO2 50.5 L ABG HCO3 25.7 ABG Total CO2 27.7 H ABG O2 Saturation 78.8 L ABG Base Excess 1.8 FiO2 40.00 Sodium Potassium Chloride Carbon Dioxide Anion Gap BUN Creatinine GFR Calculation BUN/Creatinine Ratio Glucose POC Glucose 105 120 H Calculated Osmolality Calcium Phosphorus Magnesium Prealbumin 06/24/17 06/24/17 06/24/17 05:20 05:20 05:20 WBC 9.2 D RBC 3.28 L Hgb 10.5 L Hct 33.2 L MCV 101.2 MCH 32 MCHC 31.6 L RDW 16.4 Plt Count 64 L MPV 11.7 Neut % (Auto) 81.4 H Lymph % (Auto) 10.6 L Holt % (Auto) 6.3 Eos % (Auto) 0.1 Baso % (Auto) 0.1 Neut # (Auto) 7.5 H Lymph # (Auto) 1.0 L Holt # (Auto) 0.6 Eos # (Auto) 0.0 Baso # (Auto) 0.0 Immature Gran % 1.5 Nucleated RBC % 0.0 Immature Gran # 0.14 Nucleated RBCs # 0.00 Immature Plt Fraction 0.0 ABG pH ABG pCO2 ABG pO2 ABG HCO3 ABG Total CO2 ABG O2 Saturation ABG Base Excess FiO2 Sodium 142 Potassium 3.3 L Chloride 106 Carbon Dioxide 29 Anion Gap 10.3 BUN 13 Creatinine 0.90 GFR Calculation 89 BUN/Creatinine Ratio 14.00 Glucose 119 H POC Glucose Calculated Osmolality 283.1 Calcium 8.2 L Phosphorus 3.3 Magnesium 2.6 H Prealbumin 15.1 L 06/24/17 06/24/17 06/24/17 06:17 07:23 11:45 WBC RBC Hgb Hct MCV MCH MCHC RDW Plt Count MPV Neut % (Auto) Lymph % (Auto) Holt % (Auto) Eos % (Auto) Baso % (Auto) Neut # (Auto) Lymph # (Auto) Holt # (Auto) Eos # (Auto) Baso # (Auto) Immature Gran % Nucleated RBC % Immature Gran # Nucleated RBCs # Immature Plt Fraction ABG pH 7.325 L ABG pCO2 57.9 H ABG pO2 78.7 L ABG HCO3 26.6 H ABG Total CO2 26.8 ABG O2 Saturation 94.5 L ABG Base Excess 2.6 H FiO2 40.00 Sodium Potassium Chloride Carbon Dioxide Anion Gap BUN Creatinine GFR Calculation BUN/Creatinine Ratio Glucose POC Glucose 119 H 98 Calculated Osmolality Calcium Phosphorus Magnesium Prealbumin - EKG EKG results: interpreted by me
[2017-06-24] MEDS: PROPOFOL 1,000 MG/100 ML BOTTLE IV SCH (12:49)
[2017-06-24] MEDS: PHENYLEPHRINE DRIP 40 MG/250 ML PREMIX IV SCH (12:50)
[2017-06-24] MEDS: LEVOFLOXACIN INJ 500 MG in PREMIX 1 EACH IV SCH (15:48)
--- NOTE | 2017-06-24 16:29 | Hospitalist Progress Note ---
Hospitalist: Subjective Interval history: 56-year-old female with severe hypothyroidism admitted with sinus bradycardia and acute hypoxemic and hypercapnic respiratory failure requiring ventilation. Exam - Constitutional Vitals: Period Temp Pulse Resp BP Sys/Rosario Pulse Ox Last 24 Hr 97.2 F-97.9 F 41-63 10-27 111-152/68-87 93-100 Exam: Constitutional System: No distress. No tremulousness. Morbidly obese Head: Normocephalic, atraumatic. Ears, Nose and Throat System: No pain or tenderness. No epistaxis or discharge Eyes System: Pupils equal, round, and reactive. Extraocular muscles intact. Neck: Supple, without adenopathy, No jugular venous distention. Respiratory System: Chest clear to auscultation. Cardiovascular System: Heart with regular rate and rhythm. No murmur. GI System: Abdomen soft, nontender. Normo active bowel sounds present. Musculoskeletal System: limbs with bilateral pitting pedal edema. Full distal pulses. Neurological System: No gross sensory deficits Results - Labs CBC & BMP: 06/24/17 05:20 06/24/17 05:20 - Impressions Assessment and Plan: (1) Acute hypoxemic and hypercapnic respiratory failure Status: Acute Assessment and plan: She is on mechanical ventilation. Myxedema coma, obstructive sleep apnea and or obesity hypoventilation syndrome appear contributory to her respiratory failure. 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 Continue IV Synthroid 100 mcg daily. Continue IV hydrocortisone 50 mg every 12h Current Visit: Yes Qualifiers: Hypothyroidism type: acquired Qualified Code(s): E03.9 - Hypothyroidism, unspecified (3) Unspecified sleep apnea Status: Acute Assessment and plan: Likely has sleep apnea based on her presentation Current Visit: Yes (4) Diabetes-II Status: Chronic Assessment and plan: This is controlled (5) Bibasilar bacterial pneumonia Status: Acute Assessment and plan: Continue IV Levaquin Current Visit: Yes (6) Thrombocytopenia Status: Acute Assessment and plan: Monitor CBC Current Visit: Yes
[2017-06-24] MEDS: POTASSIUM CHLORIDE 20 MEQ/15 ML UDCUP PER TUBE PRN ×2 (18:20→20:09)
[2017-06-24] MEDS: ATORVASTATIN 20 MG TABLET PO SCH (20:09)
[2017-06-25] MEDS: POTASSIUM CHLORIDE 20 MEQ/15 ML UDCUP PER TUBE PRN ×2 (00:30→08:25)
[2017-06-25] MEDS: MIDAZOLAM 100 MG in SODIUM CHLORIDE 0.9% 80 ML IV SCH ×3 (02:40→13:54)
[2017-06-25] MEDS: HYDROCORTISONE 100 MG VIAL IV SCH ×2 (02:40→13:26)
[2017-06-25] MEDS: INSULIN LISPRO 100 UNIT/ML SUBCUT SCH ×4 (05:55→23:59)
[2017-06-25] MEDS: LEVOTHYROXINE 100 MCG VIAL IV SCH (06:35)
[2017-06-25 06:40] LABS: Eosinophils % 0.2 % (0.00-10.9); Hematocrit 33.4 VOL% (35.7-47.0); Hemoglobin 10.6 GM/DL (12.0-16.0); Immature Granulocytes % 1.2 %; Immature Granulocytes Absolute 0.07 #; Lymphocytes % 16.8 % (21.3-54.2); Mean Corpuscular HGB Conc 31.7 GM/DL (32-36); Mean Corpuscular Hemoglobin 33 PG (27-34); Mean Corpuscular Volume 103.1 FL (87-102); Mean Platelet Volume 11.6 FL (9.6-12.0); Monocytes # 0.3 10*3/uL (0.11-0.8); Monocytes % 5.3 % (1.7-12.7); Neutrophils # 4.5 10*3/uL (1.4-7.4); Neutrophils % 76.5 % (38.7-73.9); Platelet Count 55 T/CUMM (130-400); Red Blood Count 3.24 MC/CUMM (3.8-5.5); Red Cell Distribution Width 16.5 % (9.3-17.3); White Blood Count 5.9 T/CUMM (4-12)
[2017-06-25 07:06] LABS: Calcium 8.4 MG/DL (8.5-10.1); Magnesium 2.6 MG/DL (1.8-2.4); Osmolality,Calculated 283.3 MOS/KG (273-304); Potassium 3.7 MMOL/L (3.5-5.1)
[2017-06-25 07:29] LABS: Hypochromasia 1+; Lymphocytes 21 % (20-55); Macrocytosis 1+; Nucleated Red Blood Cells 1 (0-5); Segmented Neutrophils 76 % (50-85); Total Cells Counted 100
[2017-06-25 07:30] LABS: Platelet Estimate Decreased
--- NOTE | 2017-06-25 08:17 | Pulmonology Progress Note ---
Pulmonary - PN: Subj Interval history: Patient stable overnight, no acute events per nursing. Remains on minimal vent setting. Exam (Progress Note) - Constitutional Vitals: Period Temp Pulse Resp BP Sys/Rosario Pulse Ox Last 24 Hr 97.7 F-98.2 F 43-70 12-19 96-152/52-82 92-99 General appearance: morbidly obese Exam: intubated and sedated - Head Head exam: Present: normal inspection - Neck Neck exam: Present: normal inspection - Respiratory Respiratory exam: Present: clear to auscultation bilaterally - Cardiovascular Cardiovascular exam: Present: bradycardia Results - Labs CBC & BMP: 06/25/17 06:22 06/25/17 06:22 Lab Results: I have reviewed the past 24 hour labs Assessment and Plan (1) Acute respiratory failure Status: Acute Assessment and plan: Patient with hypercapnic respiratory failure in the setting of myxedema coma. ABGs looking better, on minimal vent settings. Will do a sedation holiday and if she can wake up, will do an SBT. If she passes, will extubated today. Patient will need CPAP while asleep if she gets extubated Current Visit: Yes
[2017-06-25] MEDS: FAMOTIDINE 8 MG/ML 50 ML/BOTTLE PO SCH ×2 (08:26→20:27)
--- NOTE | 2017-06-25 09:09 | XRay Report ---
XR chest 1V portable Indication: Pneumonia. Chest one view: Comparison yesterday. Endotracheal tube, NG tube, cardiomegaly, complete obscuration of the left lung base and linear atelectasis of the right lung base are stable. Impression: No change. PROCEDURE INTERPRETED AT [facility] DEPARTMENT OF RADIOLOGY Final Report Signed by: Garfield Evans M.D.
[2017-06-25] MEDS: PROPOFOL 1,000 MG/100 ML BOTTLE IV SCH (11:34)
[2017-06-25] MEDS: PHENYLEPHRINE DRIP 40 MG/250 ML PREMIX IV SCH (11:34)
--- NOTE | 2017-06-25 13:17 | Cardiology Progress Note ---
Assessment and Plan (1) Bradycardia Status: Acute Assessment and plan: 06/24/17: The bradycardia is less with giving the IV levothyroxine, heart rate has been now in the 50s. Has not required atropine for the last 24-36 hours Since she is getting the IV levothyroxine I will discontinue the oral levothyroxine Attempting to wean, but her CO2 is rising. She may have to have mild chronic respiratory failure to get off the ventilator Neurologically she seems intact. She seems to understand when I ask her to do commands. Continue slow wean. Optimize treatment her lungs. I suspect obesity hypoventilation syndrome as part of her rising CO2. 06/25/17: Heart rate is better with IV levothyroxine. Is now in the high 50s to low 60s She is more alert. It is my understanding she is being considered for extubation. Okay with me. Continue to monitor rhythm with extubation Watch out for hypercapnia after extubation, I suspect she has obesity hypoventilation syndrome Current Visit: Yes (2) Acute respiratory failure Status: Acute Current Visit: Yes (3) Bilateral lower extremity edema Status: Acute Current Visit: Yes (4) Cardiomegaly Status: Acute Current Visit: Yes (5) Hypothyroidism Status: Acute Current Visit: Yes Qualifiers: Hypothyroidism type: acquired Qualified Code(s): E03.9 - Hypothyroidism, unspecified (6) Pancytopenia Status: Acute Current Visit: Yes (7) Pneumonia Status: Acute Current Visit: Yes (8) Unspecified sleep apnea Status: Acute Current Visit: Yes (9) CHF (congestive heart failure) Status: Chronic Current Visit: Yes Qualifiers: Congestive heart failure type: diastolic Congestive heart failure chronicity: chronic Qualified Code(s): I50.32 - Chronic diastolic (congestive ) heart failure (10) Daytime sleepiness Status: Chronic Current Visit: Yes (11) Diabetes Status: Chronic Current Visit: Yes (12) Hyperlipidemia Status: Chronic Current Visit: Yes (13) Obesity Status: Chronic Current Visit: Yes Qualifiers: Obesity type: due to excess calories Serious obesity comorbidity presence: with serious comorbidity Body mass index: BMI 45.0-49.9 (14) Snoring Status: Chronic Current Visit: Yes Cardiology - PN: Subj Interval history: Is awake and alert. Can follow commands. Exam (Progress Note) - Constitutional Vitals: Period Temp Pulse Resp BP Sys/Rosario Pulse Ox Last 24 Hr 97.7 F-98.2 F 49-70 12-18 96-152/52-82 92-99 Exam: HEENT: Pupils equal, reactive to light and accommodation Neck: NoJVD or bruit Lungs clear to auscultation Heart: Regular rhythm rate with normal S1 and S2. Apical S4 Abdomen: No hepatosplenomegaly Spine/extremities: No clubbing, cyanosis, or edema Neuro: Nonfocal, except sedated Psych: No depression or anxiety Result/EKG - Labs CBC & BMP: 06/25/17 06:22 06/25/17 06:22 Labs: Laboratory Results - last 24 hr 06/24/17 06/24/17 06/25/17 17:55 23:51 05:53 WBC RBC Hgb Hct MCV MCH MCHC RDW Plt Count MPV Neut % (Auto) Lymph % (Auto) Mclennan % (Auto) Eos % (Auto) Baso % (Auto) Neut # (Auto) Lymph # (Auto) Mclennan # (Auto) Eos # (Auto) Baso # (Auto) Total Counted Immature Gran % Nucleated RBC % Immature Gran # Segmented Neutrophils Lymphocytes Monocytes Nucleated RBCs Nucleated RBCs # Platelet Estimate Hypochromasia Macrocytosis Sodium Potassium Chloride Carbon Dioxide Anion Gap BUN Creatinine GFR Calculation BUN/Creatinine Ratio Glucose POC Glucose 111 H 137 H 125 H Calculated Osmolality Calcium Magnesium Free T4 06/25/17 06/25/17 06/25/17 06:22 06:22 06:22 WBC 5.9 D RBC 3.24 L Hgb 10.6 L Hct 33.4 L MCV 103.1 H MCH 33 MCHC 31.7 L RDW 16.5 Plt Count 55 L MPV 11.6 Neut % (Auto) 76.5 H Lymph % (Auto) 16.8 L Mclennan % (Auto) 5.3 Eos % (Auto) 0.2 Baso % (Auto) 0.0 Neut # (Auto) 4.5 Lymph # (Auto) 1.0 L Mclennan # (Auto) 0.3 Eos # (Auto) 0.0 Baso # (Auto) 0.0 Total Counted 100 Immature Gran % 1.2 Nucleated RBC % 0.0 Immature Gran # 0.07 Segmented Neutrophils 76 Lymphocytes 21 Monocytes 3 Nucleated RBCs 1 Nucleated RBCs # 0.00 Platelet Estimate Decreased Hypochromasia 1+ Macrocytosis 1+ Sodium 141 Potassium 3.7 Chloride 107 Carbon Dioxide 30 Anion Gap 7.7 BUN 16 Creatinine 0.90 GFR Calculation 89 BUN/Creatinine Ratio 17.00 Glucose 126 H POC Glucose Calculated Osmolality 283.3 Calcium 8.4 L Magnesium 2.6 H Free T4 0.32 L 06/25/17 11:06 WBC RBC Hgb Hct MCV MCH MCHC RDW Plt Count MPV Neut % (Auto) Lymph % (Auto) Mclennan % (Auto) Eos % (Auto) Baso % (Auto) Neut # (Auto) Lymph # (Auto) Mclennan # (Auto) Eos # (Auto) Baso # (Auto) Total Counted Immature Gran % Nucleated RBC % Immature Gran # Segmented Neutrophils Lymphocytes Monocytes Nucleated RBCs Nucleated RBCs # Platelet Estimate Hypochromasia Macrocytosis Sodium Potassium Chloride Carbon Dioxide Anion Gap BUN Creatinine GFR Calculation BUN/Creatinine Ratio Glucose POC Glucose 133 H Calculated Osmolality Calcium Magnesium Free T4 - Diagnostic Findings Procedure: Chest x-ray: report reviewed by me - EKG EKG results: interpreted by me
[2017-06-25] MEDS ORDERED: RACEPINEPHRINE 0.5 ML NEB RESP TX ONE (15:03)
[2017-06-25] MEDS: ALBUTEROL/IPRATROPIUM 3 ML NEB RESP TX SCH ×3 (15:09→23:36)
[2017-06-25] MEDS: LEVOFLOXACIN INJ 500 MG in PREMIX 1 EACH IV SCH (15:33)
--- NOTE | 2017-06-25 17:19 | Hospitalist Progress Note ---
Hospitalist: Subjective Interval history: 56-year-old female with severe hypothyroidism admitted with sinus bradycardia and acute hypoxemic and hypercapnic respiratory failure requiring mechanical ventilation Exam - Constitutional Vitals: Period Temp Pulse Resp BP Sys/Rosario Pulse Ox Last 24 Hr 97.7 F-98.2 F 49-70 12-18 96-145/52-82 92-100 Exam: Constitutional System: No distress. No tremulousness. Morbidly obese Head: Normocephalic, atraumatic. Ears, Nose and Throat System: No pain or tenderness. No epistaxis or discharge Eyes System: Pupils equal, round, and reactive. Extraocular muscles intact. Neck: Supple, without adenopathy, No jugular venous distention. Respiratory System: Chest clear to auscultation. Cardiovascular System: Heart with regular rate and rhythm. No murmur. GI System: Abdomen soft, nontender. Normo active bowel sounds present. Musculoskeletal System: limbs with bilateral pitting pedal edema. Full distal pulses. Neurological System: No gross sensory deficits Results - Labs CBC & BMP: 06/25/17 06:22 06/25/17 06:22 - Impressions Assessment and Plan: (1) Acute hypoxemic and hypercapnic respiratory failure Status: Acute Assessment and plan: She is on mechanical ventilation. Myxedema coma, obstructive sleep apnea and or obesity hypoventilation syndrome appear contributory to her respiratory failure. 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 Continue IV Synthroid 100 mcg daily. Continue IV hydrocortisone 50 mg every 12h Current Visit: Yes Qualifiers: Hypothyroidism type: acquired Qualified Code(s): E03.9 - Hypothyroidism, unspecified (3) Unspecified sleep apnea Status: Acute Assessment and plan: Likely has sleep apnea based on her presentation Current Visit: Yes (4) Diabetes-II Status: Chronic Assessment and plan: This is controlled (5) Bibasilar bacterial pneumonia Status: Acute Assessment and plan: Continue IV Levaquin Current Visit: Yes (6) Thrombocytopenia Status: Acute Assessment and plan: Monitor CBC Current Visit: Yes
[2017-06-25] MEDS: ATORVASTATIN 20 MG TABLET PO SCH (20:27)
[2017-06-26] MEDS: HYDROCORTISONE 100 MG VIAL IV SCH ×3 (02:00→21:10)
[2017-06-26] MEDS: ALBUTEROL/IPRATROPIUM 3 ML NEB RESP TX SCH ×5 (03:41→20:43)
[2017-06-26 06:23] LABS: Basophils % 0.3 % (0.0-0.8); Hematocrit 34.3 VOL% (35.7-47.0); Hemoglobin 11.2 GM/DL (12.0-16.0); Immature Granulocytes % 4.3 %; Immature Granulocytes Absolute 0.27 #; Lymphocytes # 0.8 10*3/uL (1.4-4.0); Mean Corpuscular HGB Conc 32.7 GM/DL (32-36); Mean Corpuscular Hemoglobin 33 PG (27-34); Mean Corpuscular Volume 101.2 FL (87-102); Mean Platelet Volume 11.8 FL (9.6-12.0); Monocytes # 0.4 10*3/uL (0.11-0.8); Neutrophils # 4.9 10*3/uL (1.4-7.4); Neutrophils % 77.4 % (38.7-73.9); Platelet Count 70 T/CUMM (130-400); Red Blood Count 3.39 MC/CUMM (3.8-5.5); Red Cell Distribution Width 16.4 % (9.3-17.3); White Blood Count 6.4 T/CUMM (4-12)
[2017-06-26] MEDS: LEVOTHYROXINE 100 MCG VIAL IV SCH (06:26)
[2017-06-26] MEDS: INSULIN LISPRO 100 UNIT/ML SUBCUT SCH ×3 (06:26→18:39)
[2017-06-26 06:39] LABS: Calcium 8.8 MG/DL (8.5-10.1); Magnesium 2.4 MG/DL (1.8-2.4); Potassium 3.5 MMOL/L (3.5-5.1)
[2017-06-26 06:49] LABS: Giant Platelets Few; Hypochromasia Slight; Ovalocytes Slight; Platelet Estimate Decreased
--- NOTE | 2017-06-26 07:10 | Pulmonology Progress Note ---
Pulmonary - PN: Subj Interval history: This 56-year-old black female came in with bradycardia and acute respiratory failure. Her PCO2 was in the 100s. We were not able to get it turned around with BiPAP. She is now on the ventilator. ABGs look good now. It appears that she has severe hypothyroidism. We have started her on Synthroid. I added Solu-Cortef as sometimes these people have adrenal insufficiency. She is more responsive this morning. She is on empiric antibiotics. It will likely take a few days for the thyroid replacement to be effective. She also has apparent obstructive sleep apnea, however the sleep study that was done was not interpretable. Please see Dr. Lee's note. Patient was able to be extubated yesterday after a successful T-tube trial. O2 sat is 97% on 3 L. Patient is arousable but not talking. We need to check ABGs. She will need BiPAP at bedtime. May need BiPAP during the daytime if PCO2 is too high. Exam (Progress Note) - Constitutional Vitals: Period Temp Pulse Resp BP Sys/Rosario Pulse Ox Last 24 Hr 97.2 F-98.2 F 50-73 - 98-145/56-96 88-100 Exam: She is somewhat responsive. Pupils are reactive. On nasal oxygen neck supple no bruits. Chest reveals a few basilar rhonchi. Heart rates around 65 no murmurs. Abdomen soft nontender no masses. Extremities no clubbing cyanosis edema. Results - Labs CBC & BMP: 06/26/17 05:27 06/26/17 05:27 Lab Results: I have reviewed the past 24 hour labs - Diagnostic Findings Procedure: Chest x-ray: image reviewed by me (Patchy infiltrate at right base. Left diaphragm visible. Cardiomegaly.) Assessment and Plan (1) Acute respiratory failure Status: Acute Assessment and plan: She has a PCO2 of 131 and a pH of 7.09 on BiPAP with 100% oxygen. Do not have the PO2 out yet. Clearly she has not responded to BiPAP. She needs intubation and mechanical ventilation. The respiratory failure is probably due to severe hypothyroidism with early myxedema coma. Also likely has obstructive sleep apnea and or obesity hypoventilation syndrome 06/23/2017 ABGs look good on the ventilator. We can start trying CPAP trials. This will tell us about the status of her thyroid replacement. If she is not having adequate minute ventilation on CPAP 10 we will need to wait on weaning. 06/26/2017 patient was extubated yesterday. Oxygen saturation 97% on 3 L. We need to reduce FiO2. Will need to continue with BiPAP at bedtime. Current Visit: Yes (2) Hypothyroidism Status: Acute Assessment and plan: TSH 83 with a very low free T4. Clearly she is profoundly hypothyroid. Agree with replacing with Synthroid. It will take several days to get her thyroid condition corrected with medications. 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 Hopefully replacing thyroid for a few days will get this corrected enough that she can be weaned. 06/26/2017 TSH down to 42. Been on IV Synthroid now for about 4 days. Current Visit: Yes Qualifiers: Hypothyroidism type: acquired Qualified Code(s): E03.9 - Hypothyroidism, unspecified (3) Unspecified sleep apnea Status: Acute Assessment and plan: Likely has sleep apnea based on her history and physical exam. This is clearly aggravated by her hypothyroidism. BiPAP does not appear to be working at this point. She needs mechanical ventilation and then can wean when her hypothyroid is better controlled 06/23/2017 she had a home sleep study done but it was not interpretable. Certainly has signs and symptoms of obstructive sleep apnea. 06/26/2017 continuing BiPAP at bedtime. Check ABGs, while awake. Current Visit: Yes (4) Diabetes Status: Chronic Assessment and plan: Glucoses look okay 06/23/2017 glucoses look good. 06/26/2017 glucoses well controlled. Current Visit: Yes
--- NOTE | 2017-06-26 07:54 | XRay Report ---
Portable chest. Indication: Pneumonia. Comparison: June 25, 2017. The heart is enlarged. Nasogastric tube is in satisfactory position. The endotracheal tube has been removed. Surgical clips in the right upper quadrant. The left lung shows interval improvement in aeration. There is worsening infiltrate in the lateral aspects of the right lung base and a small right pleural effusion. Impression: While the left lung is now better aerated, there is worsening infiltrate and pleural effusion at the right lung base. PROCEDURE INTERPRETED AT [facility] DEPARTMENT OF RADIOLOGY Final Report Signed by: Dr. Ingrid Cortez
--- NOTE | 2017-06-26 08:02 | Cardiology Progress Note ---
Assessment and Plan - Time spent with patient Time spent with patient: Greater than 30 minutes (Chart review, examination documentation) (1) Bradycardia Status: Acute Assessment and plan: This is improved with extubation and repletion of thyroid hormone. There is no AV conduction delay. I have nothing further to add at this time and we will sign off. The patient needs routine screening and evaluation for cardiac health given her risk factor she has a very high risk for coronary artery disease. As her thyroid hormone is repleted if she develops any signs or symptoms of decompensation of anginal or anginal equivalent heart failure with need further invasive evaluation. Current Visit: Yes (2) Diabetes Status: Chronic Current Visit: Yes Qualifiers: Diabetes mellitus type: type 2 (3) Hypothyroidism Status: Chronic Current Visit: Yes Qualifiers: Hypothyroidism type: acquired Qualified Code(s): E03.9 - Hypothyroidism, unspecified (4) Hyperlipidemia Status: Chronic Current Visit: Yes (5) Obesity Status: Chronic Current Visit: Yes Qualifiers: Obesity type: due to excess calories Serious obesity comorbidity presence: with serious comorbidity Body mass index: BMI 45.0-49.9 (6) Unspecified sleep apnea Status: Chronic Current Visit: Yes (7) Acute respiratory failure Status: Acute Current Visit: Yes Cardiology - PN: Subj Interval history: This is a pleasant morbidly obese 56-year-old who has severe hypothyroidism. Cardiology was consulted for bradycardia. She has been on the ventilator she is now extubated. Her heart rate is improved with repletion of thyroid hormone. She is now in sinus rhythm with a high degree AV block. Her heart rate is 72 when I examined her. I reviewed her transthoracic echo was interpreted last week results are as follows: Mild concentric left ventricular hypertrophy with diastolic dysfunction. Left ventricular ejection fraction is estimated at >55 %. Mild apical LAE. Mildly thickened mitral valve with mild mitral regurgitation. Small pericardial effusion. + Moderate size left pleural effusion. Exam (Progress Note) - Constitutional Vitals: Period Temp Pulse Resp BP Sys/Rosario Pulse Ox Last 24 Hr 97.2 F-98.2 F 51-73 11-18 98-145/56-96 88-100 General appearance: morbidly obese - Head Head exam: Present: other (ASA 4 airway) - Eye Eye exam: Present: EOMI Pupils: Present: BRIGITTE - Respiratory Respiratory exam: Present: other (Very poor effort with bibasilar atelectasis) - Cardiovascular Cardiovascular exam: Present: regular rate and rhythm (Tones are distant rate is 70. PMI cannot be localized no gallop or murmur is auscultated) - GI/Abdominal GI/Abdominal exam: Present: normal bowel sounds (NG tube remains in place post extubation) - Extremities Exam Extremities exam: Present: normal inspection - Back Exam Back exam: Present: normal inspection - Neurological Exam Neurological exam: Present: alert, oriented X3 - Psychiatric Psychiatric exam: Present: flat affect - Skin Skin exam: Present: normal color, warm, dry Result/EKG - Labs CBC & BMP: 06/26/17 05:27 06/26/17 05:27 Labs: Laboratory Results - last 24 hr 06/25/17 06/25/17 06/25/17 11:06 17:19 23:55 WBC RBC Hgb Hct MCV MCH MCHC RDW Plt Count MPV Neut % (Auto) Lymph % (Auto) Major % (Auto) Eos % (Auto) Baso % (Auto) Neut # (Auto) Lymph # (Auto) Major # (Auto) Eos # (Auto) Baso # (Auto) Immature Gran % Nucleated RBC % Immature Gran # Nucleated RBCs # Platelet Estimate Giant Platelets Immature Plt Fraction Hypochromasia Ovalocytes Morphology Comment Sodium Potassium Chloride Carbon Dioxide Anion Gap BUN Creatinine GFR Calculation BUN/Creatinine Ratio Glucose POC Glucose 133 H 183 H 107 H Calculated Osmolality Calcium Phosphorus Magnesium TSH 3rd Generation 06/26/17 06/26/17 06/26/17 05:27 05:27 05:27 WBC 6.4 RBC 3.39 L Hgb 11.2 L Hct 34.3 L MCV 101.2 MCH 33 MCHC 32.7 RDW 16.4 Plt Count 70 L D MPV 11.8 Neut % (Auto) 77.4 H Lymph % (Auto) 12.0 L Major % (Auto) 6.0 Eos % (Auto) 0.0 Baso % (Auto) 0.3 Neut # (Auto) 4.9 Lymph # (Auto) 0.8 L Major # (Auto) 0.4 Eos # (Auto) 0.0 Baso # (Auto) 0.0 Immature Gran % 4.3 Nucleated RBC % 0.0 Immature Gran # 0.27 Nucleated RBCs # 0.00 Platelet Estimate Decreased Giant Platelets Few Immature Plt Fraction 6.6 Hypochromasia Slight Ovalocytes Slight Morphology Comment Sodium 143 Potassium 3.5 Chloride 107 Carbon Dioxide 32 Anion Gap 7.5 BUN 20 H Creatinine 0.90 GFR Calculation 89 BUN/Creatinine Ratio 22.00 H Glucose 146 H POC Glucose Calculated Osmolality 290.0 Calcium 8.8 Phosphorus 2.9 Magnesium 2.4 TSH 3rd Generation 06/26/17 06/26/17 05:27 05:53 WBC RBC Hgb Hct MCV MCH MCHC RDW Plt Count MPV Neut % (Auto) Lymph % (Auto) Major % (Auto) Eos % (Auto) Baso % (Auto) Neut # (Auto) Lymph # (Auto) Major # (Auto) Eos # (Auto) Baso # (Auto) Immature Gran % Nucleated RBC % Immature Gran # Nucleated RBCs # Platelet Estimate Giant Platelets Immature Plt Fraction Hypochromasia Ovalocytes Morphology Comment Sodium Potassium Chloride Carbon Dioxide Anion Gap BUN Creatinine GFR Calculation BUN/Creatinine Ratio Glucose POC Glucose 172 H Calculated Osmolality Calcium Phosphorus Magnesium TSH 3rd Generation 42.800 H
[2017-06-26 08:27] LABS: ABG Base Excess 5.4 MMOL/L (-2.5-2.5); ABG HCO3 29.2 MMOL/L (20-26); ABG Oxygen Saturation 91.5 % (95-100); ABG PCO2 60.7 MM HG (35-48); ABG PH 7.342 (7.35-7.45); ABG PO2 65.4 MM HG (80-95); ABG TCO2 29.8 MMOL/L (23-27)
[2017-06-26] MEDS: LOSARTAN 25 MG TABLET PO SCH (09:06)
[2017-06-26] MEDS: FAMOTIDINE 8 MG/ML 50 ML/BOTTLE PO SCH ×2 (09:22→21:35)
[2017-06-26] MEDS: PHENYLEPHRINE DRIP 40 MG/250 ML PREMIX IV SCH (14:46)
--- NOTE | 2017-06-26 15:48 | Hospitalist Progress Note ---
Hospitalist: Subjective Interval history: 56-year-old female with severe hypothyroidism admitted with sinus bradycardia and acute hypoxemic and hypercapnic respiratory failure initially requiring mechanical ventilation. However she was extubated yesterday after successful T- piece trial. She is still needing CPAP at night. Exam - Constitutional Vitals: Period Temp Pulse Resp BP Sys/Rosario Pulse Ox Last 24 Hr 97.2 F-98.2 F 57-73 8-18 92-131/47-96 88-99 Exam: Constitutional System: No distress. No tremulousness. Morbidly obese Head: Normocephalic, atraumatic. Ears, Nose and Throat System: No pain or tenderness. No epistaxis or discharge Eyes System: Pupils equal, round, and reactive. Extraocular muscles intact. Neck: Supple, without adenopathy, No jugular venous distention. Respiratory System: Chest clear to auscultation. Cardiovascular System: Heart with regular rate and rhythm. No murmur. GI System: Abdomen soft, nontender. Normo active bowel sounds present. Musculoskeletal System: limbs with bilateral pitting pedal edema. Full distal pulses. Neurological System: No gross sensory deficits Results - Labs CBC & BMP: 06/26/17 05:27 06/26/17 05:27 - Impressions Assessment and Plan: (1) Acute hypoxemic and hypercapnic respiratory failure Status: Acute Assessment and plan: She is status post extubation yesterday. myxedema coma, obstructive sleep apnea and or obesity hypoventilation syndrome appear contributory to her respiratory failure. 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 Continue IV Synthroid 100 mcg daily. Continue IV hydrocortisone 25 mg every 12h Current Visit: Yes Qualifiers: Hypothyroidism type: acquired Qualified Code(s): E03.9 - Hypothyroidism, unspecified (3) Unspecified sleep apnea Status: Acute Assessment and plan: Likely has sleep apnea based on her presentation Current Visit: Yes (4) Diabetes-II Status: Chronic Assessment and plan: This is controlled (5) Bibasilar bacterial pneumonia Status: Acute Assessment and plan: Continue IV Levaquin Current Visit: Yes (6) Thrombocytopenia Status: Acute Assessment and plan: Monitor CBC Current Visit: Yes
[2017-06-26] MEDS: LEVOFLOXACIN INJ 500 MG in PREMIX 1 EACH IV SCH (16:46)
[2017-06-26] MEDS: ATORVASTATIN 20 MG TABLET PO SCH (21:35)
[2017-06-27] MEDS: INSULIN LISPRO 100 UNIT/ML SUBCUT SCH ×4 (00:09→17:43)
[2017-06-27] MEDS: ALBUTEROL/IPRATROPIUM 3 ML NEB RESP TX SCH ×7 (00:12→23:11)
[2017-06-27 05:15] LABS: Basophils % 0.5 % (0.0-0.8); Eosinophils % 0.5 % (0.00-10.9); Hematocrit 33.7 VOL% (35.7-47.0); Hemoglobin 10.8 GM/DL (12.0-16.0); Immature Granulocytes % 4.4 %; Immature Granulocytes Absolute 0.29 #; Lymphocytes # 1.2 10*3/uL (1.4-4.0); Lymphocytes % 18.1 % (21.3-54.2); Mean Corpuscular Hemoglobin 33 PG (27-34); Mean Corpuscular Volume 101.8 FL (87-102); Mean Platelet Volume 12.3 FL (9.6-12.0); Monocytes # 0.5 10*3/uL (0.11-0.8); Monocytes % 8.1 % (1.7-12.7); Neutrophils # 4.5 10*3/uL (1.4-7.4); Neutrophils % 68.4 % (38.7-73.9); Platelet Count 72 T/CUMM (130-400); Red Blood Count 3.31 MC/CUMM (3.8-5.5); Red Cell Distribution Width 16.6 % (9.3-17.3); White Blood Count 6.5 T/CUMM (4-12)
[2017-06-27 05:32] LABS: Calcium 8.6 MG/DL (8.5-10.1); Magnesium 2.5 MG/DL (1.8-2.4); Osmolality,Calculated 288.8 MOS/KG (273-304); Potassium 3.6 MMOL/L (3.5-5.1)
[2017-06-27 05:45] LABS: Band Neutrophils 2 % (0-10); Giant Platelets Few; Hypochromasia 1+; Lymphocytes 21 % (20-55); Ovalocytes Slight; Platelet Estimate Decreased; Segmented Neutrophils 75 % (50-85); Total Cells Counted 100
[2017-06-27 05:46] LABS: Macrocytosis Slight
--- NOTE | 2017-06-27 07:20 | Pulmonology Progress Note ---
Pulmonary - PN: Subj Interval history: This 56-year-old black female came in with bradycardia and acute respiratory failure. Her PCO2 was in the 100s. We were not able to get it turned around with BiPAP. She is now on the ventilator. ABGs look good now. It appears that she has severe hypothyroidism. We have started her on Synthroid. I added Solu-Cortef as sometimes these people have adrenal insufficiency. She is more responsive this morning. She is on empiric antibiotics. It will likely take a few days for the thyroid replacement to be effective. She also has apparent obstructive sleep apnea, however the sleep study that was done was not interpretable. Please see Dr. Lee's note. 06/26/2017 patient was able to be extubated yesterday after a successful T-tube trial. O2 sat is 97% on 3 L. Patient is arousable but not talking. We need to check ABGs. She will need BiPAP at bedtime. May need BiPAP during the daytime if PCO2 is too high. 06/27/2017 she appears to be more alert. He wants to get up on the side of the bed. We will get physical therapy to work with her as she has not done much for several days. She is having some coarse rhonchi and is coughing up some phlegm. She is on Levaquin. I will change her to Solu-Medrol at a little higher dose. We need to increase activity. Recheck x-ray tomorrow Exam (Progress Note) - Constitutional Vitals: Period Temp Pulse Resp BP Sys/Rosario Pulse Ox Last 24 Hr 97.5 F-98.2 F 53-67 8-19 92-129/47-68 91-99 Exam: She is somewhat responsive. Pupils are reactive. On nasal oxygen neck supple no bruits. Chest reveals some coarse rhonchi. Heart rates around 65 no murmurs. Abdomen soft nontender no masses. Extremities no clubbing cyanosis edema. Results - Labs CBC & BMP: 06/27/17 03:54 06/27/17 03:54 Lab Results: I have reviewed the past 24 hour labs Assessment and Plan (1) Acute respiratory failure Status: Acute Assessment and plan: She has a PCO2 of 131 and a pH of 7.09 on BiPAP with 100% oxygen. Do not have the PO2 out yet. Clearly she has not responded to BiPAP. She needs intubation and mechanical ventilation. The respiratory failure is probably due to severe hypothyroidism with early myxedema coma. Also likely has obstructive sleep apnea and or obesity hypoventilation syndrome 06/23/2017 ABGs look good on the ventilator. We can start trying CPAP trials. This will tell us about the status of her thyroid replacement. If she is not having adequate minute ventilation on CPAP 10 we will need to wait on weaning. 06/26/2017 patient was extubated yesterday. Oxygen saturation 97% on 3 L. We need to reduce FiO2. Will need to continue with BiPAP at bedtime. 06/27/2017 this has improved. She probably has obesity hypoventilation syndrome with a chronically elevated PCO2. This is certainly aggravated by hypothyroidism. She has a superimposed acute bronchitis Current Visit: Yes (2) Hypothyroidism Status: Chronic Assessment and plan: TSH 83 with a very low free T4. Clearly she is profoundly hypothyroid. Agree with replacing with Synthroid. It will take several days to get her thyroid condition corrected with medications. 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 Hopefully replacing thyroid for a few days will get this corrected enough that she can be weaned. 06/26/2017 TSH down to 42. Been on IV Synthroid now for about 4 days. 06/27/2017 continuing Synthroid. Current Visit: Yes Qualifiers: Hypothyroidism type: acquired Qualified Code(s): E03.9 - Hypothyroidism, unspecified (3) Unspecified sleep apnea Status: Chronic Assessment and plan: Likely has sleep apnea based on her history and physical exam. This is clearly aggravated by her hypothyroidism. BiPAP does not appear to be working at this point. She needs mechanical ventilation and then can wean when her hypothyroid is better controlled 06/23/2017 she had a home sleep study done but it was not interpretable. Certainly has signs and symptoms of obstructive sleep apnea. 06/26/2017 continuing BiPAP at bedtime. Check ABGs, while awake. 06/25/2017 continuing BiPAP at bedtime. Likely has both sleep apnea and obesity hypoventilation syndrome. Current Visit: Yes (4) Diabetes Status: Chronic Assessment and plan: Glucoses look okay 06/23/2017 glucoses look good. 06/26/2017 glucoses well controlled. 06/27/2017 glucoses are well controlled. Need to watch a little more closely since I am adding Solu-Medrol. Current Visit: Yes Qualifiers: Diabetes mellitus type: type 2
--- NOTE | 2017-06-27 08:38 | Hospitalist Progress Note ---
Assessment and Plan (1) Acute respiratory failure Status: Acute Assessment and plan: 1)acute hypoxic respiratory failure on chronic hypercapnic resp failure- extubated 2 days ago and has done well. She did not like the BIPAP last night but kept her sats up on NC. She has OHS worsened by acute bronchitis. Responding to steroids, nebs, antibiotics. 2)CHRIS- BIPAP at bedtime. 3)DM- glucose controlled- expect this to increase as solumedrol added. 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 and IV steroids. 5)thrombocytopenia- resolved. Current Visit: Yes (2) Diabetes Status: Chronic Current Visit: Yes Qualifiers: Diabetes mellitus type: type 2 (3) CHF (congestive heart failure) Status: Chronic Current Visit: Yes Qualifiers: Congestive heart failure type: diastolic Congestive heart failure chronicity: chronic Qualified Code(s): I50.32 - Chronic diastolic (congestive ) heart failure (4) Hypothyroidism Status: Chronic Current Visit: Yes Qualifiers: Hypothyroidism type: acquired Qualified Code(s): E03.9 - Hypothyroidism, unspecified (5) Hyperlipidemia Status: Chronic Current Visit: Yes (6) Unspecified sleep apnea Status: Chronic Current Visit: Yes Hospitalist: Subjective Interval history: Ms Juarez is awake and answers my questions. She reports pain in her right foot that started when she fell over furniture before admission- xr pending. She remains weak but her strength is improving and she will have PT today. Swallow eval pending- hope to dc the NGT. She denies other pain or shortness of breath. Exam - Constitutional Vitals: Period Temp Pulse Resp BP Sys/Rosario Pulse Ox Last 24 Hr 97.5 F-98.2 F 53-67 8-19 92-129/47-68 91-99 General appearance: no acute distress (breathing comfortably while lying flat), morbidly obese - Eye Eye exam: Present: EOMI. Absent: scleral icterus Pupils: Present: BRIGITTE - Respiratory Respiratory exam: Present: clear to auscultation bilaterally - Cardiovascular Cardiovascular exam: Present: regular rate and rhythm - GI/Abdominal GI/Abdominal exam: Present: normal bowel sounds, soft. Absent: tenderness - Extremities Exam Extremities exam: Present: edema (left foot more than right with bruise on surface of left foot) Results - Labs CBC & BMP: 06/27/17 03:54 06/27/17 03:54 Lab Results: I have reviewed the past 24 hour labs
--- NOTE | 2017-06-27 09:20 | XRay Report ---
Right foot, 2 views. Indication: Injury with pain. Swelling and bruising. There is soft tissue swelling over the dorsal forefoot. There are mild degenerative changes at the first metatarsophalangeal joint. There is a small plantar calcaneal spur. There is no evidence of acute fracture or dislocation. Impression: Soft tissue swelling. No acute bony abnormality. PROCEDURE INTERPRETED AT [facility] DEPARTMENT OF RADIOLOGY Final Report Signed by: Dr. Ingrid Cortez
[2017-06-27] MEDS: methylPREDNISolone SOD SUC 40 MG/1 ML VIAL IV SCH ×3 (09:55→23:55)
[2017-06-27] MEDS: LOSARTAN 25 MG TABLET PO SCH (09:56)
[2017-06-27] MEDS: LEVOTHYROXINE 100 MCG VIAL IV SCH (09:58)
[2017-06-27] MEDS: FAMOTIDINE 8 MG/ML 50 ML/BOTTLE PO SCH ×2 (10:05→22:32)
[2017-06-27] MEDS: PROPOFOL 1,000 MG/100 ML BOTTLE IV SCH (15:00)
[2017-06-27] MEDS: LEVOFLOXACIN INJ 500 MG in PREMIX 1 EACH IV SCH (17:03)
--- NOTE | 2017-06-27 17:52 | Sleep Medicine Progress Note ---
Assessment and Plan (1) Unspecified sleep apnea Status: Chronic Assessment and plan: We will proceed with home sleep testing again tonight if able from a pulmonary standpoint. Current Visit: Yes (2) Hypothyroidism Status: Chronic Current Visit: Yes Qualifiers: Hypothyroidism type: acquired Qualified Code(s): E03.9 - Hypothyroidism, unspecified (3) Diabetes Status: Chronic Current Visit: Yes Qualifiers: Diabetes mellitus type: type 2 Sleep Medicine Subjective Interval history: Patient is now extubated and appears to be much better. She is more alert and responsive. HST evaluation previously was unsuccessful. We will try again tonight if not on BiPAP therapy. Exam (Progress Note) - Constitutional Vitals: Period Temp Pulse Resp BP Sys/Rosario Pulse Ox Last 24 Hr 97.3 F-98.2 F 53-88 10-26 100-121/48-65 92-99 Exam: She is alert and responsive. She appears to be in no acute distress. Chest with fair air movement without significant wheeze or rhonchi. Cardiac exam reveals a regular rhythm without murmur or gallop. Abdomen soft nontender extremities without increased edema. Neurologically, she is alert. Results - Labs CBC & BMP: 06/27/17 03:54 06/27/17 03:54 Lab Results: I have reviewed the past 24 hour labs
[2017-06-27] MEDS: ATORVASTATIN 20 MG TABLET PO SCH (22:31)
[2017-06-28] MEDS: INSULIN LISPRO 100 UNIT/ML SUBCUT SCH ×4 (01:05→18:02)
[2017-06-28] MEDS: ALBUTEROL/IPRATROPIUM 3 ML NEB RESP TX SCH ×6 (02:22→23:40)
[2017-06-28 07:44] LABS: Calcium 8.8 MG/DL (8.5-10.1); Osmolality,Calculated 288.8 MOS/KG (273-304); Potassium 3.7 MMOL/L (3.5-5.1)
--- NOTE | 2017-06-28 09:00 | Pulmonology Progress Note ---
Pulmonary - PN: Subj Interval history: This 56-year-old black female came in with bradycardia and acute respiratory failure. Her PCO2 was in the 100s. We were not able to get it turned around with BiPAP. She is now on the ventilator. ABGs look good now. It appears that she has severe hypothyroidism. We have started her on Synthroid. I added Solu-Cortef as sometimes these people have adrenal insufficiency. She is more responsive this morning. She is on empiric antibiotics. It will likely take a few days for the thyroid replacement to be effective. She also has apparent obstructive sleep apnea, however the sleep study that was done was not interpretable. Please see Dr. Lee's note. 06/26/2017 patient was able to be extubated yesterday after a successful T-tube trial. O2 sat is 97% on 3 L. Patient is arousable but not talking. We need to check ABGs. She will need BiPAP at bedtime. May need BiPAP during the daytime if PCO2 is too high. 06/27/2017 she appears to be more alert. He wants to get up on the side of the bed. We will get physical therapy to work with her as she has not done much for several days. She is having some coarse rhonchi and is coughing up some phlegm. She is on Levaquin. I will change her to Solu-Medrol at a little higher dose. We need to increase activity. Recheck x-ray tomorrow 06/28/2017 patient much more alert. It is obvious that she does not remember events around the time of her hospitalization. With a PCO2 over 100 that is not surprising. At this point she is able to eat talk and make pretty good sense. She certainly has severe sleep apnea, probably obesity hypoventilation as well. Underlying severe hypothyroidism, for which she had stopped taking her medications, was the most important factor I think. At this point she could be changed to oral Synthroid. I will wean her steroids. Exam (Progress Note) - Constitutional Vitals: Period Temp Pulse Resp BP Sys/Rosario Pulse Ox Last 24 Hr 96.9 F-98 F 54-88 13-26 95-114/50-65 92-98 Exam: She is alert and oriented. Pupils are reactive. On nasal oxygen neck supple no bruits. Chest reveals some coarse rhonchi. Heart rates around 65 no murmurs. Abdomen soft nontender no masses. Extremities no clubbing cyanosis edema. Results - Labs CBC & BMP: 06/27/17 03:54 06/28/17 06:19 Lab Results: I have reviewed the past 24 hour labs Assessment and Plan (1) Acute respiratory failure Status: Acute Assessment and plan: She has a PCO2 of 131 and a pH of 7.09 on BiPAP with 100% oxygen. Do not have the PO2 out yet. Clearly she has not responded to BiPAP. She needs intubation and mechanical ventilation. The respiratory failure is probably due to severe hypothyroidism with early myxedema coma. Also likely has obstructive sleep apnea and or obesity hypoventilation syndrome 06/23/2017 ABGs look good on the ventilator. We can start trying CPAP trials. This will tell us about the status of her thyroid replacement. If she is not having adequate minute ventilation on CPAP 10 we will need to wait on weaning. 06/26/2017 patient was extubated yesterday. Oxygen saturation 97% on 3 L. We need to reduce FiO2. Will need to continue with BiPAP at bedtime. 06/27/2017 this has improved. She probably has obesity hypoventilation syndrome with a chronically elevated PCO2. This is certainly aggravated by hypothyroidism. She has a superimposed acute bronchitis 06/28/2017 doing well with low flow nasal oxygen and BiPAP at night. She is to have a screening study for sleep apnea while in the hospital. Current Visit: Yes (2) Hypothyroidism Status: Chronic Assessment and plan: TSH 83 with a very low free T4. Clearly she is profoundly hypothyroid. Agree with replacing with Synthroid. It will take several days to get her thyroid condition corrected with medications. 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 Hopefully replacing thyroid for a few days will get this corrected enough that she can be weaned. 06/26/2017 TSH down to 42. Been on IV Synthroid now for about 4 days. 06/27/2017 continuing Synthroid. 06/28/2017 at this point we can change her to oral Synthroid. She needs close follow-up to be sure her TSH normalizes in 3 or 4 weeks. Current Visit: Yes Qualifiers: Hypothyroidism type: acquired Qualified Code(s): E03.9 - Hypothyroidism, unspecified (3) Unspecified sleep apnea Status: Chronic Assessment and plan: Likely has sleep apnea based on her history and physical exam. This is clearly aggravated by her hypothyroidism. BiPAP does not appear to be working at this point. She needs mechanical ventilation and then can wean when her hypothyroid is better controlled 06/23/2017 she had a home sleep study done but it was not interpretable. Certainly has signs and symptoms of obstructive sleep apnea. 06/26/2017 continuing BiPAP at bedtime. Check ABGs, while awake. 06/27/2017 continuing BiPAP at bedtime. Likely has both sleep apnea and obesity hypoventilation syndrome. 06/28/[address] Lee Current Visit: Yes (4) Diabetes Status: Chronic Assessment and plan: Glucoses look okay 06/23/2017 glucoses look good. 06/26/2017 glucoses well controlled. 06/27/2017 glucoses are well controlled. Need to watch a little more closely since I am adding Solu-Medrol. 06/28/2017 blood sugars look pretty good. Tapering steroids Current Visit: Yes Qualifiers: Diabetes mellitus type: type 2
--- NOTE | 2017-06-28 10:41 | Hospitalist Progress Note ---
Assessment and Plan (1) Sleep apnea Status: Acute Assessment and plan: She is reluctantly using her BiPAP. She appears significantly improved. Current Visit: Yes Qualifiers: Sleep apnea type: obstructive Qualified Code(s): G47.33 - Obstructive sleep apnea (adult) (pediatric) (2) Hypothyroidism Status: Chronic Assessment and plan: Her levothyroxine has been changed from intravenous to oral 0.125 mg daily. Current Visit: Yes Qualifiers: Hypothyroidism type: acquired Qualified Code(s): E03.9 - Hypothyroidism, unspecified (3) Pancytopenia Status: Acute Assessment and plan: Her CBC today demonstrates hematocrit 33.7, hemoglobin 10.8, WBC 6500, and platelets 72,000. Current Visit: Yes (4) Acute respiratory failure Status: Acute Assessment and plan: She is status post acute respiratory failure with residual chronic respiratory failure. She appears much improved since her hospitalization. She continues to be followed by pulmonary. Current Visit: Yes Hospitalist: Subjective Interval history: Patient was hospitalized here with acute respiratory failure with hypercapnia, sleep apnea, alveolar hypoventilation syndrome, and hypothyroidism. She had discontinued her medications prior to admission. She was originally hospitalized in the intensive care unit where she underwent intubation and assisted ventilation. She continues to be followed by pulmonary. She is doing better today. She is comfortable at the present time. Exam - Constitutional Vitals: Period Temp Pulse Resp BP Sys/Rosario Pulse Ox Last 24 Hr 96.9 F-98 F 54-88 13-26 95-114/50-65 92-98 General appearance: no acute distress - Head Head exam: Present: normal inspection - Neck Neck exam: Present: normal inspection - Respiratory Respiratory exam: Present: clear to auscultation bilaterally - Cardiovascular Cardiovascular exam: Present: regular rate and rhythm - GI/Abdominal GI/Abdominal exam: Present: normal bowel sounds, soft - Extremities Exam Extremities exam: Present: normal inspection - Neurological Exam Neurological exam: Present: alert - Psychiatric Psychiatric exam: Present: normal affect - Skin Skin exam: Present: normal color, warm, intact Results - Labs CBC & BMP: 06/27/17 03:54 06/28/17 06:19
[2017-06-28] MEDS: FAMOTIDINE 8 MG/ML 50 ML/BOTTLE PO SCH ×2 (10:47→20:46)
[2017-06-28] MEDS: methylPREDNISolone SOD SUC 40 MG/1 ML VIAL IV SCH (13:04)
[2017-06-28] MEDS: LEVOTHYROXINE 100 MCG VIAL IV SCH (13:04)
[2017-06-28] MEDS: LOSARTAN 25 MG TABLET PO SCH (16:32)
--- NOTE | 2017-06-28 18:25 | Sleep Medicine Progress Note ---
Assessment and Plan (1) Unspecified sleep apnea Status: Chronic Assessment and plan: Will start autotitration cpap with 5 - 20 cm and follow up results. Current Visit: Yes (2) Hypothyroidism Status: Chronic Current Visit: Yes Qualifiers: Hypothyroidism type: acquired Qualified Code(s): E03.9 - Hypothyroidism, unspecified (3) Diabetes Status: Chronic Current Visit: Yes Qualifiers: Diabetes mellitus type: type 2 Sleep Medicine Subjective Interval history: patient did have evidence of CHRIS on HST last night. Had mild findings but this was on nasal cannula O2 at 2l/m. Will start CPAP tonight. Exam (Progress Note) - Constitutional Vitals: Period Temp Pulse Resp BP Sys/Rosario Pulse Ox Last 24 Hr 96.9 F-98 F 53-64 16-20 95-114/50-65 90-98 Exam: She is alert and responsive. She appears to be in no acute distress. Chest with fair air movement without significant wheeze or rhonchi. Cardiac exam reveals a regular rhythm without murmur or gallop. Abdomen soft nontender extremities without increased edema. Neurologically, she is alert. Results - Labs CBC & BMP: 06/27/17 03:54 06/28/17 06:19 Lab Results: I have reviewed the past 24 hour labs
[2017-06-28] MEDS: ATORVASTATIN 20 MG TABLET PO SCH (20:45)
[2017-06-28] MEDS: LEVOFLOXACIN INJ 500 MG in PREMIX 1 EACH IV SCH (20:46)
[2017-06-29] MEDS: ALBUTEROL/IPRATROPIUM 3 ML NEB RESP TX SCH ×3 (03:04→10:57)
[2017-06-29] MEDS: INSULIN LISPRO 100 UNIT/ML SUBCUT SCH ×3 (06:05→12:03)
[2017-06-29] MEDS ORDERED: LEVOTHYROXINE 125 MCG TABLET PO SCH (07:00)
[2017-06-29] MEDS: LOSARTAN 25 MG TABLET PO SCH (08:06)
[2017-06-29] MEDS: FAMOTIDINE 8 MG/ML 50 ML/BOTTLE PO SCH (08:06)
--- NOTE | 2017-06-29 08:45 | Pulmonology Progress Note ---
Pulmonary - PN: Subj Interval history: This 56-year-old black female came in with bradycardia and acute respiratory failure. Her PCO2 was in the 100s. We were not able to get it turned around with BiPAP. She is now on the ventilator. ABGs look good now. It appears that she has severe hypothyroidism. We have started her on Synthroid. I added Solu-Cortef as sometimes these people have adrenal insufficiency. She is more responsive this morning. She is on empiric antibiotics. It will likely take a few days for the thyroid replacement to be effective. She also has apparent obstructive sleep apnea, however the sleep study that was done was not interpretable. Please see Dr. Lee's note. 06/26/2017 patient was able to be extubated yesterday after a successful T-tube trial. O2 sat is 97% on 3 L. Patient is arousable but not talking. We need to check ABGs. She will need BiPAP at bedtime. May need BiPAP during the daytime if PCO2 is too high. 06/27/2017 she appears to be more alert. He wants to get up on the side of the bed. We will get physical therapy to work with her as she has not done much for several days. She is having some coarse rhonchi and is coughing up some phlegm. She is on Levaquin. I will change her to Solu-Medrol at a little higher dose. We need to increase activity. Recheck x-ray tomorrow 06/28/2017 patient much more alert. It is obvious that she does not remember events around the time of her hospitalization. With a PCO2 over 100 that is not surprising. At this point she is able to eat talk and make pretty good sense. She certainly has severe sleep apnea, probably obesity hypoventilation as well. Underlying severe hypothyroidism, for which she had stopped taking her medications, was the most important factor I think. At this point she could be changed to oral Synthroid. I will wean her steroids. 06/29/2017 patient is alert. Oxygen saturation in the upper 90s on nasal oxygen. I do believe we can stop her oxygen. She used her new CPAP that is self adjusting last night and seemed to tolerate it well. Will change to oral medications. From my standpoint she could be discharged. She follows up at the [facility]. It is absolutely critical that she continue to take her Synthroid regularly and get TSH checked intermittently at least 2 or 3 times a year at her clinic. Exam (Progress Note) - Constitutional Vitals: Period Temp Pulse Resp BP Sys/Rosario Pulse Ox Last 24 Hr 97.0 F-98 F 53-65 16-20 97-118/51-66 90-99 Exam: She is alert and oriented. Pupils are reactive. On nasal oxygen neck supple no bruits. Chest reveals some coarse rhonchi. Heart rates around 65 no murmurs. Abdomen soft nontender no masses. Extremities no clubbing cyanosis edema. Results - Labs CBC & BMP: 06/27/17 03:54 06/28/17 06:19 Lab Results: I have reviewed the past 24 hour labs Assessment and Plan (1) Acute respiratory failure Status: Acute Assessment and plan: She has a PCO2 of 131 and a pH of 7.09 on BiPAP with 100% oxygen. Do not have the PO2 out yet. Clearly she has not responded to BiPAP. She needs intubation and mechanical ventilation. The respiratory failure is probably due to severe hypothyroidism with early myxedema coma. Also likely has obstructive sleep apnea and or obesity hypoventilation syndrome 06/23/2017 ABGs look good on the ventilator. We can start trying CPAP trials. This will tell us about the status of her thyroid replacement. If she is not having adequate minute ventilation on CPAP 10 we will need to wait on weaning. 06/26/2017 patient was extubated yesterday. Oxygen saturation 97% on 3 L. We need to reduce FiO2. Will need to continue with BiPAP at bedtime. 06/27/2017 this has improved. She probably has obesity hypoventilation syndrome with a chronically elevated PCO2. This is certainly aggravated by hypothyroidism. She has a superimposed acute bronchitis 06/28/2017 doing well with low flow nasal oxygen and BiPAP at night. She is to have a screening study for sleep apnea while in the hospital. 06/29/17 respiratory failure has resolved Current Visit: Yes (2) Hypothyroidism Status: Chronic Assessment and plan: TSH 83 with a very low free T4. Clearly she is profoundly hypothyroid. Agree with replacing with Synthroid. It will take several days to get her thyroid condition corrected with medications. 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 Hopefully replacing thyroid for a few days will get this corrected enough that she can be weaned. 06/26/2017 TSH down to 42. Been on IV Synthroid now for about 4 days. 06/27/2017 continuing Synthroid. 06/28/2017 at this point we can change her to oral Synthroid. She needs close follow-up to be sure her TSH normalizes in 3 or 4 weeks. 06/29/2017 now on oral Synthroid 125 mcg daily. Needs follow-up TSH in 3 or 4 weeks. I reiterated to her how important it is for her to take her thyroid medications. She nearly of hypothyroidism on this admission. Current Visit: Yes Qualifiers: Hypothyroidism type: acquired Qualified Code(s): E03.9 - Hypothyroidism, unspecified (3) Unspecified sleep apnea Status: Chronic Assessment and plan: Likely has sleep apnea based on her history and physical exam. This is clearly aggravated by her hypothyroidism. BiPAP does not appear to be working at this point. She needs mechanical ventilation and then can wean when her hypothyroid is better controlled 06/23/2017 she had a home sleep study done but it was not interpretable. Certainly has signs and symptoms of obstructive sleep apnea. 06/26/2017 continuing BiPAP at bedtime. Check ABGs, while awake. 06/27/2017 continuing BiPAP at bedtime. Likely has both sleep apnea and obesity hypoventilation syndrome. 06/28/[address] Lee 06/29/2017 she does have sleep apnea and has been set up with a self adjusting CPAP machine. Current Visit: Yes (4) Diabetes Status: Chronic Assessment and plan: Glucoses look okay 06/23/2017 glucoses look good. 06/26/2017 glucoses well controlled. 06/27/2017 glucoses are well controlled. Need to watch a little more closely since I am adding Solu-Medrol. 06/28/2017 blood sugars look pretty good. Tapering steroids Current Visit: Yes Qualifiers: Diabetes mellitus type: type 2
[2017-06-29] MEDS ORDERED: predniSONE 10 MG TABLET PO SCH (09:00)
[2017-06-29] MEDS ORDERED: LEVOFLOXACIN 500 MG TABLET PO SCH (09:00)
--- NOTE | 2017-06-29 09:09 | Discharge Summary ---
Hospital Course - Hospital Course Hospital Course: Ms. Juarez is a 56 year old female with a history of hypotension, CHF, diabetes , Harrison's palsy, and hyperlipidemia that was transferred to our facility as a direct admit from [facility] for further evaluation of bradycardia and pneumonia. Patient was seen and examined and telemetry North room 291. Patient states that yesterday and home she fell several times. She denies hitting her head but reports hurting her right foot. She reported to her PCP for eval today and was sent to the [facility] as a result. At [facility], she was examined and her foot wasn't broken. Pt was noted however to have a low O2 sats in the 80 %. Pt. was also noted to be bradycardiac and a pneumonia was revealed on CXR. She was transferred to our facility for a higher level of care. Pt. denies shortness of breath presently. She also denies chest pain or abdominal pain, vomiting and fever but confirms chills, night sweats, and a cough. Pt. also reports snoring at night abd waking up fatigued. Pt. reports seeing multiple doctors for various health issues but she is unclear on what the issues are. Pt. will be further examined and evaluated. Cardiology will be consulted to assist in the care of the patient as well. She was seen here in consultation by pulmonary, cardiology, and sleep medicine. She was experiencing acute respiratory failure with hypoxia and hypercapnia subsequently diagnosed to be due to her severe hypothyroidism. She had been treated previously treated with levothyroxine which she had self discontinued. She was restarted on her levothyroxine. She was begun on BiPAP therapy for her sleep apnea. She improved significantly during her hospitalization. At the time of her discharge she was comfortable with no complaints. Diagnosis - Discharge Diagnosis (1) Sleep apnea Status: Acute (2) Hypothyroidism Status: Chronic (3) Pancytopenia Status: Acute (4) Acute respiratory failure Status: Acute Discharge Plan - Discharge Data Condition at Discharge: Stable Discharge Diet: advance to your usual diet Activity: resume usual activities as tolerated - Discharge Medications New Levothyroxine Tab [Synthroid Tab] 125 mcg PO DAILY@0700 #30 tablet predniSONE TAB [PredniSONE] 10 mg PO DAILY #14 tablet Atorvastatin [Lipitor] 20 mg PO BEDTIME #30 tablet Losartan [Cozaar] 12.5 mg PO DAILY #30 tablet Continue Naproxen Sodium [Aleve Cap] 220 mg PO Q8H PRN PRN Reason: Pain - Follow Up or Referral - Forms/Instructions Exam - Constitutional Vitals: Period Temp Pulse Resp BP Sys/Rosario Pulse Ox Last 24 Hr 97.0 F-98 F 53-66 14-20 97-118/51-66 90-99 Discharge Results Labs on day of discharge: Labs from last 24 hours 06/29/17 06/29/17 06/28/17 06:02 00:30 17:56 POC Glucose 93 102 96 06/28/17 11:08 POC Glucose 111 H DS: Provider Date of admission: 06/20/17 16:07 Primary care physician: Matilda Akhtar MD Attending physician on admission: Murray Matute MD Consults: 06/20/17 17:47 Consult to Physician [CONS] Routine Comment: bradycardia/chf Consulting Provider: Brandyn Nova Person Notified: Ludmila Date Notified: 06/21/17 Time Notified: 07:45 06/20/17 18:23 Consult to Sleep Center [CONS] Routine Reason for Sleep Center: Sleep Center Physician 06/21/17 10:41 Consult to Physician [CONS] Routine Comment: Possible sleep apnea Consulting Provider: Olga Lee 06/22/17 10:42 Consult to Physician [CONS] Routine Comment: pnuemonia/on bipap. Consulting Provider: Johnnie Sabillon Consulting Provider Notified: Yes When should Consulting Provider be notified: Now 06/22/17 13:36 Consult to Physician [CONS] Routine Comment: bradycardia/hypothyroidism Consulting Provider: Brandyn Nova Consulting Provider Notified: Yes When should Consulting Provider be notified: Now Person Notified: patiat cis, states, "will get this sent over" Date Notified: 06/22/17 Time Notified: 14:14 06/22/17 16:57 Consult to Dietitian [CONS] Routine Reason for Dietitian: TF-Initiate/Manage 06/27/17 07:20 Consult to Physical Therapy [CONS] Routine Reason for Physical Therapy: Weakness Start Therapy: Today Consult Comment: Patient needs to sit up and increase activity 06/27/17 08:31 Consult to Case Mgmt/Social Srvs [CONS] Routine Reason for Case Mgmt/Social Srvs: Discharge Planning Discharging clinician: Saul Green
[2017-06-29 11:52] VITALS: BP 104/58
--- NOTE | 2017-06-29 13:17 | Sleep Medicine Progress Note ---
Assessment and Plan (1) Unspecified sleep apnea Status: Chronic Assessment and plan: Patient will be set up for sleep study at next available date at [facility]. She would benefit from being provided auto titration CPAP until formal evaluation can be done. 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 Current Visit: Yes (2) Hypothyroidism Status: Chronic Current Visit: Yes Qualifiers: Hypothyroidism type: acquired Qualified Code(s): E03.9 - Hypothyroidism, unspecified (3) Diabetes Status: Chronic Current Visit: Yes Qualifiers: Diabetes mellitus type: type 2 Sleep Medicine Subjective Interval history: Patient did very well on auto titration CPAP last night. She spent over 7-1/2 hours on auto titration CPAP and had fair control of sleep apnea with an AHI of 7.9. Average device pressure was 13. She needs to be set up for an lab evaluation at [facility]. I suspect this patient has very severe sleep apnea that was not picked up on diagnostic HST. She may benefit from BiPAP therapy and will need to prove this in the sleep lab. If loaner auto CPAP can be made available, that would be beneficial for this patient. Exam (Progress Note) - Constitutional Vitals: Period Temp Pulse Resp BP Sys/Rosario Pulse Ox Last 24 Hr 97.0 F-98 F 53-70 14-20 97-118/51-66 90-99 Exam: Patient more alert and responsive. Neck supple without adenopathy. Chest with fair air movement without significant wheeze or rhonchi. Cardiac exam reveals a regular rhythm without murmur or gallop. Abdomen soft nontender extremities without increased edema. Results - Labs CBC & BMP: 06/27/17 03:54 06/28/17 06:19 Lab Results: I have reviewed the past 24 hour labs Specialty Discharge - Follow Up or Referrals
== END 2017-06-29 14:45 | disposition home or self-care (01) | DRG 643 ==
LOC: SUATTDRO 16:07 → N.TELEN 16:07 → N.CC 06-22 09:15 → N.2E 06-27 15:02
PROVIDERS: ADMIT Internal Medicine Infectious Disease

== ENCOUNTER 2017-08-30 14:24 | Observation (INO) ==
[2017-08-30] MEDS ORDERED: ENOXAPARIN 100 MG/ML SYRINGE SUBCUT STA (15:03)
[2017-08-30] MEDS ORDERED: ENOXAPARIN 100 MG/ML SYRINGE SUBCUT ONE (15:13)
[2017-08-30 15:41] LABS: Basophils % 0.1 % (0.0-0.8); Eosinophils # 0.2 10*3/uL (0.0-0.87); Hematocrit 34.4 VOL% (35.7-47.0); Hemoglobin 11.2 GM/DL (12.0-16.0); Immature Granulocytes % 0.3 %; Immature Granulocytes Absolute 0.02 #; Lymphocytes # 2.4 10*3/uL (1.4-4.0); Lymphocytes % 32.4 % (21.3-54.2); Mean Corpuscular HGB Conc 32.6 GM/DL (32-36); Mean Corpuscular Hemoglobin 32 PG (27-34); Mean Platelet Volume 11.3 FL (9.6-12.0); Monocytes # 0.5 10*3/uL (0.11-0.8); Monocytes % 6.7 % (1.7-12.7); Neutrophils # 4.3 10*3/uL (1.4-7.4); Neutrophils % 57.5 % (38.7-73.9); Platelet Count 101 T/CUMM (130-400); Red Blood Count 3.51 MC/CUMM (3.8-5.5); Red Cell Distribution Width 14.1 % (9.3-17.3); White Blood Count 7.4 T/CUMM (4-12)
[2017-08-30 15:53] LABS: INR 1.1; PT Patient Result 11.3 SECS; Partial Thromboplastin Time 26.1 SECS (0-40)
[2017-08-30 15:56] LABS: Albumin 3.4 G/DL (3.4-5.0); Bilirubin,Total 0.6 MG/DL (0.2-1.0); Calcium 8.9 MG/DL (8.5-10.1); Osmolality,Calculated 285.7 MOS/KG (273-304); Potassium 3.7 MMOL/L (3.5-5.1); Total Protein 6.9 G/DL (6.4-8.3)
[2017-08-30 16:16] LABS: Troponin I Only < 0.015 NG/ML (0.00-0.045)
[2017-08-30] MEDS ORDERED: ASPIRIN CHEW 81 MG TABLET PO STA (16:18)
[2017-08-30] MEDS ORDERED: MAGNESIUM SULF RIDER 2 GM in PREMIX 1 EACH IV PRN (16:53)
[2017-08-30] MEDS ORDERED: ACETAMINOPHEN 325 MG TABLET PO PRN (16:53)
[2017-08-30] MEDS ORDERED: MAGNESIUM SULF RIDER 4 GM in PREMIX 1 EACH IV PRN (16:53)
[2017-08-30] MEDS ORDERED: ONDANSETRON 4 MG/2 ML VIAL IV PRN (16:53)
[2017-08-30] MEDS ORDERED: POTASSIUM CHLORIDE 20 MEQ TABLET PO PRN (16:53)
[2017-08-30] MEDS ORDERED: ENOXAPARIN 40 MG/0.4 ML SYRINGE SUBCUT SCH (17:00)
[2017-08-30] MEDS: NITROGLYCERIN 2% OINT 1 INCH/GM PACK TOP SCH (18:05)
[2017-08-30] MEDS: PANTOPRAZOLE 40 MG TABLET PO SCH (18:06)
[2017-08-30 19:41] LABS: Troponin I Only < 0.015 NG/ML (0.00-0.045)
[2017-08-30] MEDS: ATORVASTATIN 20 MG TABLET PO SCH (20:33)
[2017-08-30] MEDS: INSULIN REGULAR 100 UNIT/ML SUBCUT SCH (20:33)
[2017-08-30] MEDS: ZALEPLON 5 MG CAPSULE PO PRN (20:35)
[2017-08-30] MEDS ORDERED: ATORVASTATIN 20 MG TABLET PO SCH (21:00)
[2017-08-30 23:10] LABS: Troponin I Only < 0.015 NG/ML (0.00-0.045)
[2017-08-31] MEDS: NITROGLYCERIN 2% OINT 1 INCH/GM PACK TOP SCH ×4 (00:13→17:09)
[2017-08-31] MEDS: LEVOTHYROXINE 125 MCG TABLET PO SCH (07:03)
[2017-08-31 08:20] LABS: Basophils % 0.2 % (0.0-0.8); Eosinophils # 0.2 10*3/uL (0.0-0.87); Eosinophils % 2.8 % (0.00-10.9); Hematocrit 34.9 VOL% (35.7-47.0); Hemoglobin 11.2 GM/DL (12.0-16.0); Immature Granulocytes % 0.4 %; Immature Granulocytes Absolute 0.02 #; Lymphocytes % 37.5 % (21.3-54.2); Mean Corpuscular HGB Conc 32.1 GM/DL (32-36); Mean Corpuscular Hemoglobin 31 PG (27-34); Mean Corpuscular Volume 97.5 FL (87-102); Mean Platelet Volume 10.9 FL (9.6-12.0); Monocytes # 0.4 10*3/uL (0.11-0.8); Monocytes % 7.2 % (1.7-12.7); Neutrophils # 2.8 10*3/uL (1.4-7.4); Neutrophils % 51.9 % (38.7-73.9); Red Blood Count 3.58 MC/CUMM (3.8-5.5); Red Cell Distribution Width 13.9 % (9.3-17.3); White Blood Count 5.4 T/CUMM (4-12)
[2017-08-31 08:28] LABS: Platelet Count 86 T/CUMM (130-400)
[2017-08-31] MEDS: INSULIN REGULAR 100 UNIT/ML SUBCUT SCH ×4 (08:42→21:42)
[2017-08-31 08:51] LABS: Risk Ratio 2.47; VLDL CHOLESTEROL 28.8 MG/DL
[2017-08-31 08:53] LABS: Calcium 8.4 MG/DL (8.5-10.1); Osmolality,Calculated 286.7 MOS/KG (273-304); Potassium 3.6 MMOL/L (3.5-5.1)
[2017-08-31 08:59] LABS: Giant Platelets Few; Hypochromasia 1+; Ovalocytes Slight; Platelet Estimate Decreased
[2017-08-31] MEDS ORDERED: diphenhydrAMINE CAP 25 MG CAPSULE PO ONE ×2 (09:40)
[2017-08-31] MEDS ORDERED: POTASSIUM CHLORIDE RIDER 10 MEQ in PREMIX 1 EACH IV PRN (09:40)
[2017-08-31] MEDS ORDERED: DIAZEPAM 5 MG TABLET PO ONE ×2 (09:40)
[2017-08-31] MEDS ORDERED: MAGNESIUM SULF RIDER 2 GM in PREMIX 1 EACH IV PRN (09:40)
[2017-08-31] MEDS ORDERED: diphenhydrAMINE CAP 50 MG CAPSULE ONE (09:47)
[2017-08-31] MEDS: LOSARTAN 25 MG TABLET PO SCH (09:50)
[2017-08-31] MEDS: PANTOPRAZOLE 40 MG TABLET PO SCH (09:50)
[2017-08-31] MEDS: ASPIRIN EC 81 MG TABLET PO SCH (09:50)
[2017-08-31] MEDS ORDERED: SODIUM CHLORIDE 0.45% 1,000 ML IV SCH (10:00)
[2017-08-31] MEDS ORDERED: LIDOCAINE 1% 20 ML VIAL ONE (13:15)
[2017-08-31] MEDS ORDERED: HEPARIN/NACL 0.9% 2 UNITS/ML 1,000 ML IV ONE (13:15)
[2017-08-31] MEDS ORDERED: MIDAZOLAM 2 MG/2 ML VIAL ONE (13:53)
[2017-08-31] MEDS ORDERED: fentaNYL 100 MCG/2 ML VIAL ONE (13:53)
[2017-08-31] MEDS ORDERED: VERAPAMIL 5 MG/2 ML VIAL ONE (13:55)
[2017-08-31] MEDS ORDERED: NITROGLYCERIN DRIP 50 MG/250 ML BOTTLE IV ONE (13:55)
[2017-08-31] MEDS ORDERED: ENOXAPARIN 40 MG/0.4 ML SYRINGE SUBCUT SCH (15:00)
[2017-08-31] MEDS: ZALEPLON 5 MG CAPSULE PO PRN (21:42)
[2017-08-31] MEDS: ATORVASTATIN 20 MG TABLET PO SCH (21:42)
[2017-09-01] MEDS: NITROGLYCERIN 2% OINT 1 INCH/GM PACK TOP SCH ×3 (01:02→12:36)
[2017-09-01] MEDS: LEVOTHYROXINE 125 MCG TABLET PO SCH (06:29)
[2017-09-01 07:29] LABS: Basophils % 0.1 % (0.0-0.8); Eosinophils # 0.2 10*3/uL (0.0-0.87); Eosinophils % 2.8 % (0.00-10.9); Hematocrit 35.4 VOL% (35.7-47.0); Hemoglobin 11.7 GM/DL (12.0-16.0); Immature Granulocytes % 0.4 %; Immature Granulocytes Absolute 0.03 #; Lymphocytes # 1.8 10*3/uL (1.4-4.0); Lymphocytes % 25.6 % (21.3-54.2); Mean Corpuscular HGB Conc 33.1 GM/DL (32-36); Mean Corpuscular Hemoglobin 32 PG (27-34); Mean Platelet Volume 11.3 FL (9.6-12.0); Monocytes # 0.5 10*3/uL (0.11-0.8); Monocytes % 7.7 % (1.7-12.7); Neutrophils # 4.4 10*3/uL (1.4-7.4); Neutrophils % 63.4 % (38.7-73.9); Platelet Count 92 T/CUMM (130-400); Red Blood Count 3.65 MC/CUMM (3.8-5.5); Red Cell Distribution Width 13.9 % (9.3-17.3); White Blood Count 6.9 T/CUMM (4-12)
[2017-09-01] MEDS: INSULIN REGULAR 100 UNIT/ML SUBCUT SCH ×2 (07:43→12:36)
[2017-09-01 07:56] LABS: Calcium 8.2 MG/DL (8.5-10.1); Magnesium 2.1 MG/DL (1.8-2.4); Osmolality,Calculated 284.8 MOS/KG (273-304); Potassium 3.7 MMOL/L (3.5-5.1)
[2017-09-01] MEDS: ASPIRIN EC 81 MG TABLET PO SCH (09:51)
[2017-09-01] MEDS: PANTOPRAZOLE 40 MG TABLET PO SCH (09:51)
[2017-09-01] MEDS: LOSARTAN 25 MG TABLET PO SCH (09:51)
[2017-09-01 10:24] LABS: Basophils % 0.1 % (0.0-0.8); Eosinophils # 0.2 10*3/uL (0.0-0.87); Eosinophils % 2.5 % (0.00-10.9); Hematocrit 35.9 VOL% (35.7-47.0); Hemoglobin 11.8 GM/DL (12.0-16.0); Immature Granulocytes % 0.4 %; Immature Granulocytes Absolute 0.03 #; Lymphocytes # 1.7 10*3/uL (1.4-4.0); Lymphocytes % 24.7 % (21.3-54.2); Mean Corpuscular HGB Conc 32.9 GM/DL (32-36); Mean Corpuscular Hemoglobin 32 PG (27-34); Mean Platelet Volume 11.4 FL (9.6-12.0); Monocytes # 0.4 10*3/uL (0.11-0.8); Monocytes % 6.4 % (1.7-12.7); Neutrophils # 4.6 10*3/uL (1.4-7.4); Neutrophils % 65.9 % (38.7-73.9); Red Blood Count 3.74 MC/CUMM (3.8-5.5); Red Cell Distribution Width 14.1 % (9.3-17.3); White Blood Count 6.9 T/CUMM (4-12)
[2017-09-01 10:48] LABS: Hypochromasia 1+
[2017-09-01 11:12] VITALS: BP 107/71
[2017-09-01 11:16] LABS: Platelet Count 104 T/CUMM (130-400)
== END 2017-09-01 12:39 | disposition home or self-care (01) ==
LOC: EDUNIT# → EDBD → N.ED 14:24 → N.EDINP 14:24 → N.TELES 16:30
PROVIDERS: ADMIT Internal Medicine Interventional Cardiology; ATTEND Internal Medicine Interventional Cardiology
PROC: CLCCHCL (ICD-10-PCS; 2017-08-31 12:45)